=== PATIENT | female | born 1950 | race Caucasian/White ===

== ENCOUNTER → 2016-10-31 | Outpatient (CLI) | payer MEDICARE ==
--- NOTE | 2016-10-31 13:35 | RADIOLOGY REPORT (SQ) ---
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 NUMBER OF VIEWS: Five views including obliques. TECHNIQUE: AP, lateral, obliques and odontoid radiographic images acquired of the cervical spine. LIMITATIONS: None. FINDINGS: MINERALIZATION: Normal. SEGMENTATION: Normal. ALIGNMENT: Straightening of the cervical curvature. VERTEBRAE: Maintained height. No fracture or worrisome bone lesion. DISCS: Multilevel disc space narrowing with osteophytes. POSTERIOR ELEMENTS: Pedicles and facets are intact. No posterior arch defects. Facet arthropathy is present. FORAMINA: Narrowed at the levels of maximal disc and facet disease. HARDWARE: None in the spine. PARASPINAL SOFT TISSUES: Normal. OTHER: No other significant finding. IMPRESSION: MULTILEVEL CHRONIC DEGENERATIVE CHANGES. NO APPARENT ACUTE FINDINGS. TECHNICAL DOCUMENTATION: JOB ID: [id number] [employer]- All Rights Reserved
--- NOTE | 2016-10-31 13:36 | RADIOLOGY REPORT (SQ) ---
EXAM DESCRIPTION: LUMBAR SPINE COMPLETE COMPLETED DATE/TIME: 10/31/2016 1:24 pm REASON FOR STUDY: SPONDYLOSIS W/O MYELOPATHY OR RADICULOPATHY, LUMBAR REGION M54.2 CERVICALGIA M47. 816 SPONDYLOSIS W/O MYELOPATHY OR RADICULOPATHY, LUMBAR COMPARISON: 04/06/2014. NUMBER OF VIEWS: Five views including obliques. TECHNIQUE: AP, lateral, oblique, and sacral radiographic images acquired of the lumbar spine. LIMITATIONS: None. FINDINGS: MINERALIZATION: Normal. SEGMENTATION: Normal. No transitional anatomy. ALIGNMENT: Scoliosis, convex to the right. VERTEBRAE: Old compression deformity of T12. Lumbar vertebrae are intact. DISCS: Multilevel disc space narrowing with osteophytes. POSTERIOR ELEMENTS: Pedicles and facets are intact. No pars defect or posterior arch defects. Facet arthropathy is present. HARDWARE: None in the spine. PARASPINAL SOFT TISSUES: Normal. PELVIS: Intact as visualized. No fractures or worrisome bone lesions. SI joints intact. OTHER: No other significant finding. IMPRESSION: MULTILEVEL CHRONIC DEGENERATIVE CHANGES. OLD COMPRESSION DEFORMITY OF THE T12 VERTEBRA. NO APPARENT ACUTE FINDINGS. TECHNICAL DOCUMENTATION: JOB ID: [id number] [employer]- All Rights Reserved
== END ==
LOC: OD 12:37
PROVIDERS: ATTEND Family Medicine
DX: M54.2 Cervicalgia (principal); M47.816 Spondylosis without myelopathy or radiculopathy, lumbar region
CPT/HCPCS: 72050; 72110

== ENCOUNTER 2017-02-20 17:13 | Emergency (ER) | payer MEDICARE ==
--- NOTE | 2017-02-20 18:01 | ER Document Report ---
ED Medical Screen (RME) - General Chief Complaint: Weakness Stated Complaint: WEAKNESS Time Seen by Provider: 02/20/17 17:58 Mode of Arrival: Wheelchair Information source: Patient TRAVEL OUTSIDE OF THE [place] IN LAST 30 DAYS: No - HPI Patient complains to provider of: weakness, trembling Onset: Other - pt with c/o weakness for the past few days with occasional arm trembling. - Related Data Allergies/Adverse Reactions: codeine Allergy (Verified 02/20/17 17:19) Past Medical History - Social History Frequency of alcohol use: None Drug Abuse: None Neurological Medical History: Reports: Hx Cerebrovascular Accident - 2 years ago Renal/ Medical History: Denies: Hx Peritoneal Dialysis Past Surgical History: Reports: Hx Cardiac Surgery - pacemaker, Hx Cholecystectomy - Immunizations Hx Diphtheria, Pertussis, Tetanus Vaccination: No Physical Exam - Vital signs Vitals: Temp Pulse Resp BP Pulse Ox 97.3 F 84 18 118/70 92 02/20/17 17:19 02/20/17 17:19 02/20/17 17:19 02/20/17 17:19 02/20/17 17:19 Course - Vital Signs Vital signs: Temp Pulse Resp BP Pulse Ox 97.3 F 84 18 118/70 92 02/20/17 17:19 02/20/17 17:19 02/20/17 17:19 02/20/17 17:19 02/20/17 17:19
[2017-02-20 18:53] LABS: APPEARANCE,URINE SLIGHTLY-CLOUDY; BILIRUBIN,URINE NEGATIVE (NEGATIVE); GLUCOSE, URINE NEGATIVE (NEGATIVE); KETONES,URINE TRACE mg/dL (NEGATIVE); LEUKOCYTE ESTERASE,URINE NEGATIVE (NEGATIVE); NITRITE,URINE POSITIVE (NEGATIVE); PROTEIN,URINE NEGATIVE (NEGATIVE); URINE SPECIFIC GRAVITY 1.035; UROBILINOGEN,URINE NEGATIVE mg/dL (<2.0)
[2017-02-20 18:54] LABS: ABSOLUTE BASOPHILS # (AUTO) 0.1 10^3/uL (0.0-0.2); ABSOLUTE LYMPHOCYTES (AUTO) 1.7 10^3/uL (0.5-4.7); ABSOLUTE MONOCYTES (AUTO) 0.7 10^3/uL (0.1-1.4); ABSOLUTE NEUT (AUTO) 5.1 10^3/uL (1.7-8.2); BASOPHILS % (AUTO) 0.7 % (0-2); EOSINOPHILS % (AUTO) 0.2 % (0-6); HEMATOCRIT 44.3 % (36.0-47.0); HGB HCT DIFFERENCE 0.7; LYMPHOCYTES % (AUTO) 22.4 % (13-45); MEAN CORPUSCULAR HEMOGLOBIN 32.7 pg (27.0-33.4); MEAN CORPUSCULAR HGB CONC 33.9 g/dL (32.0-36.0); MEAN CORPUSCULAR VOLUME 96 fl (80-97); SEGMENTED NEUTROPHILS % (AUTO) 67.7 % (42-78); WHITE BLOOD COUNT 7.6 10^3/uL (4.0-10.5)
--- NOTE | 2017-02-20 18:59 | RADIOLOGY REPORT (SQ) ---
EXAM DESCRIPTION: CHEST PA/LAT COMPLETED DATE/TIME: 02/20/2017 6:52 pm REASON FOR STUDY: weakness COMPARISON: 03/10/2016 EXAM PARAMETERS: NUMBER OF VIEWS: two views TECHNIQUE: Digital Frontal and Lateral radiographic views of the chest acquired. RADIATION DOSE: NA LIMITATIONS: none FINDINGS: LUNGS AND PLEURA: No opacities, masses or pneumothorax. No pleural effusion. MEDIASTINUM AND HILAR STRUCTURES: No masses or contour abnormalities. HEART AND VASCULAR STRUCTURES: Heart normal size. No evidence for failure. BONES: No acute findings. HARDWARE: Battery pack and leads remain in place. OTHER: No other significant finding. IMPRESSION: NO SIGNIFICANT RADIOGRAPHIC FINDING IN THE CHEST. TECHNICAL DOCUMENTATION: JOB ID: [id number] [employer]- All Rights Reserved
[2017-02-20 19:17] LABS: ALANINE AMINOTRANSFERASE 18 U/L (9-52); ALBUMIN 3.6 g/dL (3.5-5.0); ALKALINE PHOSPHATASE 60 U/L (38-126); ANION GAP 10 (5-19); ASPARTATE AMINO TRANSFERASE 18 U/L (14-36); BILIRUBIN,DIRECT 0.3 mg/dL (0.0-0.4); BILIRUBIN,TOTAL 0.3 mg/dL (0.2-1.3); BLOOD UREA NITROGEN 27 mg/dL (7-20); CALCIUM 8.9 mg/dL (8.4-10.2); CARBON DIOXIDE 28 mmol/L (22-30); CHLORIDE 106 mmol/L (98-107); CREATINE KINASE 27 U/L (30-135); CREATININE RESULT 0.78 mg/dL (0.52-1.25); GLUCOSE 84 mg/dL (75-110); POTASSIUM 4.6 mmol/L (3.6-5.0); SODIUM 143.8 mmol/L (137-145); TOTAL PROTEIN 5.7 g/dL (6.3-8.2)
[2017-02-20 19:28] LABS: CREATINE KINASE MB 0.52 ng/mL (<4.55); TROPONIN I < 0.012 ng/mL
[2017-02-20] MEDS ORDERED: NITROFURANTOIN MONOHYD/M-CRYST 100 MG CAPSULE PO ONE (20:49)
--- NOTE | 2017-02-20 20:49 | ER Document Report ---
ED Dizziness/Weakness - General Chief Complaint: Weakness Stated Complaint: WEAKNESS Time Seen by Provider: 02/20/17 17:58 Mode of Arrival: Wheelchair Information source: Patient Notes: Patient is a 66-year-old female who presents to the ER today for generalized weakness 3 days with a feeling of jitteriness in both of her arms and legs. She denies any fevers or chills, cough, runny nose, abdominal pain, low back pain, dysuria. She admits to intermittent mild headache that she usually has that she has been taking Goody's powders for. She admits to blurred vision that has been going on since she had cataract surgery, not recent. She denies any nausea or vomiting or other symptoms. TRAVEL OUTSIDE OF THE [place] IN LAST 30 DAYS: No - Related Data Allergies/Adverse Reactions: codeine Allergy (Verified 02/20/17 17:19) Past Medical History - General Information source: Patient - Social History Smoking Status: Current Every Day Smoker Frequency of alcohol use: None Drug Abuse: None Family History: Reviewed & Not Pertinent Neurological Medical History: Reports: Hx Cerebrovascular Accident - 2 years ago Renal/ Medical History: Denies: Hx Peritoneal Dialysis Past Surgical History: Reports: Hx Cardiac Surgery - pacemaker, Hx Cholecystectomy - Immunizations Hx Diphtheria, Pertussis, Tetanus Vaccination: No Review of Systems - Review of Systems Constitutional: See HPI EENT: No symptoms reported Cardiovascular: No symptoms reported Respiratory: No symptoms reported Gastrointestinal: No symptoms reported Genitourinary: No symptoms reported Female Genitourinary: No symptoms reported Musculoskeletal: No symptoms reported Skin: No symptoms reported Hematologic/Lymphatic: No symptoms reported Neurological/Psychological: No symptoms reported Physical Exam - Vital signs Vitals: Temp Pulse Resp BP Pulse Ox 97.3 F 84 18 118/70 92 02/20/17 17:19 02/20/17 17:19 02/20/17 17:19 02/20/17 17:19 02/20/17 17:19 - Notes Notes: PHYSICAL EXAMINATION: GENERAL: Well-appearing and in no acute distress. HEAD: Atraumatic, normocephalic. EYES: Pupils equal round and reactive to light, extraocular movements intact, sclera anicteric, conjunctiva are normal. NECK: Normal range of motion, supple without lymphadenopathy LUNGS: CTAB and equal. No wheezes rales or rhonchi. HEART: Regular rate and rhythm without murmurs ABDOMEN: Soft, mild suprapubic and left lower quadrant tenderness. No guarding, no rebound BACK: no vertebral tenderness, normal ROM GI/: no CVA tenderness EXTREMITIES: Normal range of motion, no pitting edema. No cyanosis. NEUROLOGICAL: Cranial nerves grossly intact. Normal sensory/motor exams. Good and equal strength bilaterally, Kernig and Brudzinski's signs negative, Romberg' s test normal, normal heel to leslie testing PSYCH: Normal mood, normal affect. SKIN: Warm, Dry, normal turgor, no rashes or lesions noted Course - Re-evaluation Re-evalutation: 02/20/17 20:47 Patient has evidence of UTI on urinalysis positive for nitrites. Urine culture is pending. Will treat patient for UTI at this time. Neurological exam is normal today. 02/20/17 20:48 - Vital Signs Vital signs: Temp Pulse Resp BP Pulse Ox 97.3 F 84 18 118/70 92 02/20/17 17:19 02/20/17 17:19 02/20/17 17:19 02/20/17 17:19 02/20/17 17:19 - Laboratory Result Diagrams: 02/20/17 18:36 02/20/17 18:36 Laboratory results interpreted by me: 02/20/17 02/20/17 02/20/17 18:19 18:36 18:36 RDW 15.0 H BUN 27 H Creatine Kinase 27 L Total Protein 5.7 L Urine Ketones TRACE H Urine Nitrite POSITIVE H Urine Ascorbic Acid 20 H Discharge - Discharge Clinical Impression: UTI (urinary tract infection) Qualifiers: Urinary tract infection type: site unspecified Hematuria presence: without hematuria Qualified Code(s): N39.0 - Urinary tract infection, site not specified Condition: Stable Disposition: HOME, SELF-CARE Additional Instructions: Drink plenty fluids. Return immediately for any new or worsening symptoms. Follow up with primary care provider, call tomorrow to make followup appointment. Prescriptions: Nitrofurantoin/Nitrofuran Mac [Macrobid 100 mg Capsule] 1 tab PO BID #20 capsule Referrals: NEISHA BANDA MD [Primary Care Provider] - Follow up as needed
[2017-02-20 21:06] VITALS: BP 140/65
--- NOTE | 2017-02-20 22:51 | EKG REPORT ---
SEVERITY:- NORMAL ECG - SINUS RHYTHM : Confirmed by: Milo Marx 20-Feb-2017 22:49:50
== END 2017-02-20 21:05 | disposition home or self-care (01) ==
LOC: ER 17:13
DX: N39.0 Urinary tract infection, site not specified (principal); R53.1 Weakness; R51 Headache; F17.200 Nicotine dependence, unspecified, uncomplicated
CPT/HCPCS: 36415; 71020; 80053; 81001; 82550; 82553; 84484; 85025; 87086; 87088; 87186; 93005; 93010; 99285

== ENCOUNTER 2017-02-21 21:34 | Inpatient (IN) | payer MEDICARE, MEDICAID ==
[2017-02-22 02:28] LABS: VENOUS BLOOD HCO3 30.6 mmol/L (20-32); VENOUS BLOOD PCO2 48.5 mmHg (35-63); VENOUS BLOOD PH 7.42 (7.30-7.42)
[2017-02-22 02:48] LABS: ALANINE AMINOTRANSFERASE 23 U/L (9-52); ALBUMIN 3.8 g/dL (3.5-5.0); ALKALINE PHOSPHATASE 69 U/L (38-126); ANION GAP 12 (5-19); ASPARTATE AMINO TRANSFERASE 20 U/L (14-36); BILIRUBIN,DIRECT 0.3 mg/dL (0.0-0.4); BILIRUBIN,TOTAL 0.3 mg/dL (0.2-1.3); BLOOD UREA NITROGEN 22 mg/dL (7-20); CARBON DIOXIDE 29 mmol/L (22-30); CHLORIDE 102 mmol/L (98-107); CREATINE KINASE 28 U/L (30-135); CREATININE RESULT 0.85 mg/dL (0.52-1.25); GLUCOSE 93 mg/dL (75-110); POTASSIUM 3.5 mmol/L (3.6-5.0); SODIUM 142.6 mmol/L (137-145); TOTAL PROTEIN 6.2 g/dL (6.3-8.2)
--- NOTE | 2017-02-22 02:57 | RADIOLOGY REPORT (SQ) ---
EXAM DESCRIPTION: CT HEAD WITHOUT COMPLETED DATE/TIME: 02/22/2017 2:37 am REASON FOR STUDY: altered mental status COMPARISON: 03/10/2016. TECHNIQUE: Axial images acquired through the brain without intravenous contrast. Images reviewed wi th bone, brain and subdural windows. Images stored on PACS. All CT scanners at this facility use dose modulation, iterative reconstruction, and/or weight based d osing when appropriate to reduce radiation dose to as low as reasonably achievable (ALARA). [facility]: Dose Right [facility]: CareDose [facility]: Dose Right [facility]: Teradose 4D [facility]: Smart [place]5 RADIATION DOSE: Up-to-date CT equipment and radiation dose reduction techniques were employed. CTDIv ol: 55.3 mGy. DLP: 996 mGy-cm. mGy. LIMITATIONS: None. FINDINGS: VENTRICLES: Normal size and contour. CEREBRUM: No masses. No hemorrhage. No midline shift. No evidence for acute infarction. Normal gra y/white matter differentiation. No areas of low density in the white matter. CEREBELLUM: No masses. No hemorrhage. No alteration of density. No evidence for acute infarction. EXTRAAXIAL SPACES: No fluid collections. No masses. Atherosclerosis. ORBITS AND GLOBE: No intra- or extraconal masses. Normal contour of globe without masses. CALVARIUM: No fracture. PARANASAL SINUSES: No fluid or mucosal thickening. SOFT TISSUES: No mass or hematoma. OTHER: No other significant finding. IMPRESSION: No acute findings. COMMENT: Quality ID # [id number]: Final reports with documentation of one or more dose reduction techniques (e.g., Automated exposure control, adjustment of the mA and/or kV according to patient size, use of iterative reconstruction technique) TECHNICAL DOCUMENTATION: JOB ID: [id number] [employer]- All Rights Reserved
--- NOTE | 2017-02-22 03:00 | RADIOLOGY REPORT (SQ) ---
EXAM DESCRIPTION: CHEST SINGLE VIEW COMPLETED DATE/TIME: 02/22/2017 2:41 am REASON FOR STUDY: altered mental status COMPARISON: 02/20/2017. EXAM PARAMETERS: NUMBER OF VIEWS: One view. TECHNIQUE: Single frontal radiographic view of the chest acquired. RADIATION DOSE: NA LIMITATIONS: None. FINDINGS: LUNGS AND PLEURA: No opacities, masses or pneumothorax. No pleural effusion. Prominent in terstitium. MEDIASTINUM AND HILAR STRUCTURES: No masses. Contour normal. HEART AND VASCULAR STRUCTURES: Heart normal in size. Atherosclerosis. BONES: No acute findings. HARDWARE: Left cardiac stimulation device and leads. Right upper abdominal clips. OTHER: No other significant finding. IMPRESSION: No acute cardiopulmonary findings. TECHNICAL DOCUMENTATION: JOB ID: [id number]
[2017-02-22 03:01] LABS: CREATINE KINASE MB < 0.22 ng/mL (<4.55); TROPONIN I < 0.012 ng/mL
[2017-02-22 03:08] LABS: HEMATOCRIT 43.8 % (36.0-47.0); HEMOGLOBIN 14.9 g/dL (12.0-15.5); HGB HCT DIFFERENCE 0.9; MEAN CORPUSCULAR HEMOGLOBIN 32.8 pg (27.0-33.4); MEAN CORPUSCULAR HGB CONC 34.1 g/dL (32.0-36.0); MEAN CORPUSCULAR VOLUME 96 fl (80-97); RED BLOOD COUNT 4.56 10^6/uL (3.72-5.28); RED CELL DISTRIBUTION WIDTH 14.6 % (11.5-14.0); WHITE BLOOD COUNT 10.7 10^3/uL (4.0-10.5)
[2017-02-22 03:10] LABS: BAND NEUTROPHILS % (MANUAL) 6 % (3-5); BASOPHILS % (MANUAL) 0 % (0-2); EOSINOPHILS % (MANUAL) 0 % (0-6); LYMPHOCYTES % (MANUAL) 3 % (13-45); TOTAL CELLS COUNTED 100
[2017-02-22 03:11] LABS: ANISOCYTOSIS SLIGHT; OVALOCYTES SLIGHT; POIKILOCYTOSIS SLIGHT; POLYCHROMASIA SLIGHT; TOXIC GRANULATION SLIGHT
[2017-02-22 03:52] LABS: APPEARANCE,URINE SLIGHTLY-CLOUDY; BILIRUBIN,URINE NEGATIVE (NEGATIVE); GLUCOSE, URINE NEGATIVE (NEGATIVE); KETONES,URINE 20 mg/dL (NEGATIVE); LEUKOCYTE ESTERASE,URINE NEGATIVE (NEGATIVE); NITRITE,URINE NEGATIVE (NEGATIVE); PROTEIN,URINE NEGATIVE (NEGATIVE); URINE SPECIFIC GRAVITY 1.029
[2017-02-22 04:09] LABS: URINE BARBITURATES SCREEN NEGATIVE; URINE METHADONE SCREEN NEGATIVE; URINE OPIATES LOW NEGATIVE; URINE PHENCYCLIDINE SCREEN NEGATIVE
[2017-02-22] MEDS ORDERED: LIDOCAINE 1% INJ-PF (10 MG/ML) 30 ML SDV INJ ONE (04:49)
[2017-02-22] MEDS ORDERED: NORMAL SALINE 1000 ML 1,000 ML IV ONE (04:57)
[2017-02-22] MEDS ORDERED: ACYCLOVIR SODIUM INJ/PF 500 MG/10 ML SDV IV ONE (05:25)
--- NOTE | 2017-02-22 05:26 | ER Document Report ---
ED General - General Chief Complaint: Vomiting Stated Complaint: VOMITING Time Seen by Provider: 02/22/17 01:42 Notes: Patient is a 66-year-old female presents with complaint of weakness dizziness. Family says that she has been intermittently confused and altered. She was seen here yesterday and diagnosed possible UTI. At that time her urinalysis showed nitrites but no leukocyte esterase. She started antibiotic and is only gotten worse during her and family. She has not had fevers at home. She says she so weak that she can barely get out of bed at this point. During exam and talked with the patient she is somnolent and difficult to keep awake. Because of this history from the patient is limited. I am able to get good history from family members who confirm that she is just been very weak and unwell appearing this has been gradually worsening for a week now. She denies any recent medication changes. She does admit she has had some headache. She says that she has chronic neck and back pain which is unchanged. She admits to some vomiting but no diarrhea. No abdominal pain associated with the vomiting. TRAVEL OUTSIDE OF THE [place] IN LAST 30 DAYS: No - Related Data Allergies/Adverse Reactions: codeine Allergy (Verified 02/20/17 17:19) Home Medications: Current Home Medications Atorvastatin Calcium [Lipitor 40 mg Tablet] 40 mg PO QHS 02/22/17 [History] Benzonatate 100 mg PO TIDP PRN 02/22/17 [History] Diltiazem HCl [Cardizem Cd 120 mg Capsule] 1 cap.sr PO DAILY 02/22/17 [History] Fluorometholone [Fluorometholone] 1 drop ASDIR PRN 02/22/17 [History] Furosemide [Lasix 20 mg Tablet] 20 mg PO QAM 02/22/17 [History] Nitrofurantoin Macrocrystal [Macrodantin] 100 mg PO BID 02/22/17 [History] Past Medical History - Social History Smoking Status: Current Every Day Smoker Frequency of alcohol use: None Drug Abuse: None Family History: Reviewed & Not Pertinent Patient has suicidal ideation: No Patient has homicidal ideation: No Neurological Medical History: Reports: Hx Cerebrovascular Accident - 2 years ago Renal/ Medical History: Denies: Hx Peritoneal Dialysis Past Surgical History: Reports: Hx Cardiac Surgery - pacemaker, Hx Cholecystectomy - Immunizations Hx Diphtheria, Pertussis, Tetanus Vaccination: No Review of Systems - Review of Systems Notes: My Normal Review Basic REVIEW OF SYSTEMS: CONSTITUTIONAL : Denies fever, chills, or sweats. . EENT: Denies eye, ear, throat, or mouth pain or symptoms. Denies nasal or sinus congestion. CARDIOVASCULAR: Denies chest pain. RESPIRATORY: Denies cough, cold, or chest congestion. Denies shortness of breath, difficulty breathing, or wheezing. GASTROINTESTINAL: Denies abdominal pain. Denies nausea, vomiting, or diarrhea. Denies constipation. Last BM: GENITOURINARY: Denies difficulty urinating, painful urination, burning, frequency, or blood in urine. MUSCULOSKELETAL: Denies neck or back pain or joint pain or swelling. SKIN: Denies rash or skin lesions.. NEUROLOGICAL: Some intermittent altered mental status.. Intermittent headache. Denies weakness or paralysis or loss of use of either side. Denies problems with gait or speech. Denies sensory or motor loss. ALL OTHER SYSTEMS REVIEWED AND NEGATIVE. Physical Exam - Vital signs Vitals: Temp Pulse Resp BP Pulse Ox 99.0 F 101 H 16 114/69 90 L 02/21/17 22:03 02/21/17 22:03 02/21/17 22:03 02/21/17 22:03 02/21/17 22:03 - Notes Notes: General Appearance: Well nourished, patient is somnolent but is able to awaken and answer my questions., cooperative, no acute distress, no obvious discomfort. Vitals: reviewed, See vital signs table. Head: no swelling or tenderness to the head Eyes: PERRL, EOMI, Conjuctiva clear Mouth: No decreasd moisture Throat: No tonsillar inflammation, No airway obstruction, No lymphadenopathy Neck: Supple, no neck tenderness Lungs: No wheezing, No rales, No rhonci, No accessory muscle use, good air exchange bilaterally. Heart: Normal rate, Regular rythm, No murmur, no rub Abdomen: Normal BS, soft, No rigidity, No abdominal tenderness, No guarding, no rebound, no abdominal masses, no organomegaly Extremities: strength 5/5 in all extremities, good pulses in all extremities, no swelling or tenderness in the extremities, no edema. Skin: warm, dry, appropriate color, no rash Neuro: speech clear, oriented x 3, normal affect, responds appropriately to questions. Cranial nerves II through XII are intact. Distal sensation intact. Patient is globally weak, but is able to move all 4 extremities equally. Course - Re-evaluation Re-evalutation: 02/22/17 06:53 At this time I do not know the exact cause of why the patient is so somnolent and is having some intermittent altered mental status. I do not see signs of infection on exam. Her CBC does have 6 bands which is just slightly elevated. I did discuss the case with Dr. Briseno, hospitalist, who requested attempt to perform a lumbar puncture. I did attempt a lumbar puncture but however did not obtain any CSF fluid. Will place her on acyclovir in case there is underlying encephalitis until they can obtain a lumbar puncture via IR. Patient to be admitted. Dictation of this chart was performed using voice recognition software; therefore, there may be some unintended grammatical errors. - Vital Signs Vital signs: Temp Pulse Resp BP Pulse Ox 98.9 F 101 H 16 105/55 L 93 02/22/17 05:55 02/21/17 22:03 02/22/17 05:01 02/22/17 05:01 02/22/17 05:01 - Laboratory Result Diagrams: 02/22/17 02:15 02/22/17 02:15 Laboratory results interpreted by me: 02/22/17 02/22/17 02/22/17 02:15 02:15 02:15 WBC 10.7 H RDW 14.6 H Plt Count 118 L Seg Neuts % (Manual) 86 H Band Neutrophils % 6 H Lymphocytes % (Manual) 3 L Abs Neuts (Manual) 9.8 H Abs Lymphs (Manual) 0.3 L Potassium 3.5 L BUN 22 H Ammonia < 8.7 L Creatine Kinase 28 L Total Protein 6.2 L TSH Urine Ketones Urine Urobilinogen 02/22/17 02/22/17 02:15 03:40 WBC RDW Plt Count Seg Neuts % (Manual) Band Neutrophils % Lymphocytes % (Manual) Abs Neuts (Manual) Abs Lymphs (Manual) Potassium BUN Ammonia Creatine Kinase Total Protein TSH 0.28 L Urine Ketones 20 H Urine Urobilinogen 2.0 H Discharge - Discharge Clinical Impression: Weakness Altered mental status Qualifiers: Altered mental status type: somnolence Qualified Code(s): R40.0 - Somnolence Condition: Stable Disposition: ADMITTED OBSERVATION Admitting Provider: Hospitalist Unit Admitted: Telemetry
[2017-02-22] MEDS ORDERED: NICOTINE 21 MG/24 HR PATCH.TD24 TD ONE (05:53)
[2017-02-22] MEDS ORDERED: IPRATROPIUM/ALBUTEROL 0.5-2.5 MG/3 ML AMPUL NEB PRN (06:20)
[2017-02-22 06:28] LABS: ADD ON TESTING BLD IN LAB ACKNOWLEDGE
[2017-02-22] MEDS ORDERED: NORMAL SALINE 1000 ML 1,000 ML IV SCH (06:30)
--- NOTE | 2017-02-22 07:26 | PDOC H&P ---
History of Present Illness Admission Date/PCP: 02/22/17 06:20 NEISHA BANDA MD Patient complains of: Generalized weakness and tremor History of Present Illness: EDMOND KIMBALL is a 66 year old female with a past medical history of morbid obesity, tobacco, hypertension, CVA, permanent pacemaker and chronic headaches. Patient been her usual state of health until approximately 7 days ago prompting her to seek evaluation emergency room 5 days ago she was diagnosed with a urinary tract infection placed on Macrodantin. She has had no urinary complaints but no improvement former symptoms including tremor, palpitations and throbbing sensation of her hands and face. Patient has a unremarkable workup and an attempted LP is unsuccessful. Patient admits to chronic daily headache for which she takes 6-8 BC powder packages per day for years. (Which equates to over 5 g of aspirin per day) she started on an IV fluid challenge, salicylate and acetaminophen levels on order. She denies difficulty maintaining consciousness, tinnitus or exceptional headache or protecting her airway. Past Medical History Neurological Medical History: Reports: Seizures, Other - Daily headaches Endocrine Medical History: Reports: Obesity Psychiatric Medical History: Denies: Depression Past Surgical History Past Surgical History: Reports: Cholecystectomy Social History Information Source: Patient Lives with: Family Smoking Status: Current Every Day Smoker Frequency of Alcohol Use: None Drugs: None - Advance Directive Resuscitation Status: Full Code Family History Family History: COPD Parental Family History Reviewed: Yes Children Family History Reviewed: Yes Sibling(s) Family History Reviewed.: Yes Medication/Allergy Home Medications: Atorvastatin Calcium [Lipitor 40 mg Tablet] 40 mg PO QHS 02/22/17 Benzonatate 100 mg PO TIDP PRN 02/22/17 Diltiazem HCl [Cardizem Cd 120 mg Capsule] 1 cap.sr PO DAILY 02/22/17 Fluorometholone [Fluorometholone] 1 drop ASDIR PRN 02/22/17 Furosemide [Lasix 20 mg Tablet] 20 mg PO QAM 02/22/17 Nitrofurantoin Macrocrystal [Macrodantin] 100 mg PO BID 02/22/17 Allergies/Adverse Reactions: codeine Allergy (Verified 02/20/17 17:19) Review of Systems Constitutional: PRESENT: as per HPI, fatigue, fever(s), weakness Eyes: ABSENT: visual disturbances Ears: ABSENT: hearing changes Cardiovascular: PRESENT: palpitations. ABSENT: chest pain, dyspnea on exertion , edema, orthropnea Respiratory: ABSENT: cough, hemoptysis Gastrointestinal: ABSENT: abdominal pain, constipation, diarrhea, hematemesis, hematochezia, nausea, vomiting Genitourinary: ABSENT: dysuria, hematuria Musculoskeletal: PRESENT: muscle weakness. ABSENT: joint swelling Integumentary: ABSENT: rash, wounds Neurological: PRESENT: abnormal movements, confusion, paresthesias, tremor(s), weakness Physical Exam Vital Signs: Temp Pulse Resp BP Pulse Ox 98.9 F 101 H 16 105/55 L 93 02/22/17 05:55 02/21/17 22:03 02/22/17 05:01 02/22/17 05:01 02/22/17 05:01 General appearance: PRESENT: cooperative, mild distress Head exam: PRESENT: atraumatic, normocephalic Eye exam: PRESENT: conjunctiva pink, EOMI, PERRLA. ABSENT: scleral icterus Ear exam: PRESENT: normal external ear exam Mouth exam: PRESENT: moist, tongue midline Neck exam: ABSENT: carotid bruit, JVD, lymphadenopathy, thyromegaly Respiratory exam: PRESENT: clear to auscultation cora. ABSENT: rales, rhonchi, wheezes Cardiovascular exam: PRESENT: RRR. ABSENT: diastolic murmur, rubs, systolic murmur Pulses: PRESENT: normal dorsalis pedis pul Vascular exam: PRESENT: normal capillary refill GI/Abdominal exam: PRESENT: normal bowel sounds, soft. ABSENT: distended, guarding, mass, organolmegaly, rebound, tenderness Rectal exam: PRESENT: deferred Extremities exam: PRESENT: full ROM. ABSENT: calf tenderness, clubbing, pedal edema Neurological exam: PRESENT: alert, awake, oriented to person, oriented to place , oriented to time, oriented to situation, CN II-XII grossly intact. ABSENT: motor sensory deficit Psychiatric exam: PRESENT: appropriate affect, normal mood. ABSENT: homicidal ideation, suicidal ideation Skin exam: PRESENT: dry, intact, warm. ABSENT: cyanosis, rash Results Impressions: Chest X-Ray 02/22/17 01:50 IMPRESSION: No acute cardiopulmonary findings. Head CT 02/22/17 01:50 IMPRESSION: No acute findings. 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 Salicylate level pending, doubt need for dialysis given no suggestion of cerebral edema or respiratory distress. IV fluid challenge and supportive measures, follow-up salicylate level in 6 hours to verify reduction. (2) Altered mental status Qualifiers: Altered mental status type: somnolence Qualified Code(s): R40.0 - Somnolence Is this a current diagnosis for this admission?: Yes Plan: Improving to baseline with IV fluid challenge and supportive measure (3) Weakness Is this a current diagnosis for this admission?: Yes Plan: Secondary #1 supportive care. - Time Time Spent: 50 to 70 Minutes - Inpatient Certification Medical Necessity: Need Close Monitoring Due to Risk of Patient Decompensation
[2017-02-22] MEDS ORDERED: DEXTROSE 5% IV PRN ×3 (09:39)
[2017-02-22] MEDS ORDERED: SODIUM BICARBONATE IV PRN ×3 (09:39)
[2017-02-22] MEDS ORDERED: [UNRECOGNIZED DRUG - OTHER] IV PRN ×3 (09:39)
[2017-02-22] MEDS ORDERED: WATER IV PRN ×3 (09:39)
--- NOTE | 2017-02-22 10:01 | PDOC PROGRESS REPORT ---
Subjective Progress Note for:: 02/22/17 Subjective:: Feeling sleepy. Physical Exam Vital Signs: Temp Pulse Resp BP Pulse Ox 98.9 F 101 H 16 105/55 L 93 02/22/17 05:55 02/21/17 22:03 02/22/17 05:01 02/22/17 05:01 02/22/17 05:01 General appearance: PRESENT: no acute distress Head exam: PRESENT: atraumatic, normocephalic Eye exam: PRESENT: conjunctiva pink, EOMI, PERRLA. ABSENT: scleral icterus Respiratory exam: PRESENT: clear to auscultation cora. ABSENT: rales, rhonchi, wheezes Cardiovascular exam: PRESENT: RRR. ABSENT: diastolic murmur, rubs, systolic murmur GI/Abdominal exam: PRESENT: normal bowel sounds, soft. ABSENT: distended, guarding, mass, organolmegaly, rebound, tenderness Neurological exam: PRESENT: alert, awake, oriented to person, oriented to place , oriented to time, oriented to situation, CN II-XII grossly intact. ABSENT: motor sensory deficit Psychiatric exam: PRESENT: appropriate affect, normal mood. ABSENT: homicidal ideation, suicidal ideation Skin exam: PRESENT: dry, intact, warm. ABSENT: cyanosis, rash Results Laboratory Results: Labs- All tests 24 hr 02/22/17 02/22/17 02/22/17 02:15 02:15 02:15 WBC 10.7 H RBC 4.56 Hgb 14.9 Hct 43.8 MCV 96 MCH 32.8 MCHC 34.1 RDW 14.6 H Plt Count 118 L Total Counted 100 Seg Neutrophils % Not Reportable Seg Neuts % (Manual) 86 H Band Neutrophils % 6 H Lymphocytes % Not Reportable Lymphocytes % (Manual) 3 L Monocytes % Not Reportable Monocytes % (Manual) 5 Eosinophils % Not Reportable Eosinophils % (Manual) 0 Basophils % Not Reportable Basophils % (Manual) 0 Absolute Neutrophils Not Reportable Abs Neuts (Manual) 9.8 H Absolute Lymphocytes Not Reportable Abs Lymphs (Manual) 0.3 L Absolute Monocytes Not Reportable Abs Monocytes (Manual) 0.5 Absolute Eosinophils Not Reportable Absolute Eos (Manual) 0.0 Absolute Basophils Not Reportable Abs Basophils (Manual) 0.0 Toxic Granulation SLIGHT Platelet Comment DECREASED Polychromasia SLIGHT Poikilocytosis SLIGHT Anisocytosis SLIGHT Ovalocytes SLIGHT ESR VBG pH VBG pCO2 VBG HCO3 VBG Base Excess Sodium 142.6 Potassium 3.5 L Chloride 102 Carbon Dioxide 29 Anion Gap 12 BUN 22 H Creatinine 0.85 Est GFR ( Amer) > 60 Est GFR (Non-Af Amer) > 60 Glucose 93 Calcium 9.0 Total Bilirubin 0.3 Direct Bilirubin 0.3 Indirect Bilirubin Not Reportable Neonat Total Bilirubin Not Reportable AST 20 ALT 23 Alkaline Phosphatase 69 Ammonia < 8.7 L Creatine Kinase 28 L CK-MB (CK-2) Troponin I Total Protein 6.2 L Albumin 3.8 TSH Urine Color Urine Appearance Urine pH Ur Specific [place] Urine Protein Urine Glucose (UA) Urine Ketones Urine Blood Urine Nitrite Urine Bilirubin Urine Urobilinogen Ur Leukocyte Esterase Urine WBC (Auto) Urine RBC (Auto) Squamous Epi Cells Auto Urine Mucus (Auto) Urine Ascorbic Acid Salicylates Urine Opiates Screen Urine Methadone Screen Acetaminophen Ur Barbiturates Screen Ur Phencyclidine Scrn Ur Amphetamines Screen U Benzodiazepines Scrn Urine Cocaine Screen U Marijuana (THC) Screen 02/22/17 02/22/17 02/22/17 02:15 02:15 02:15 WBC RBC Hgb Hct MCV MCH MCHC RDW Plt Count Total Counted Seg Neutrophils % Seg Neuts % (Manual) Band Neutrophils % Lymphocytes % Lymphocytes % (Manual) Monocytes % Monocytes % (Manual) Eosinophils % Eosinophils % (Manual) Basophils % Basophils % (Manual) Absolute Neutrophils Abs Neuts (Manual) Absolute Lymphocytes Abs Lymphs (Manual) Absolute Monocytes Abs Monocytes (Manual) Absolute Eosinophils Absolute Eos (Manual) Absolute Basophils Abs Basophils (Manual) Toxic Granulation Platelet Comment Polychromasia Poikilocytosis Anisocytosis Ovalocytes ESR VBG pH 7.42 VBG pCO2 48.5 VBG HCO3 30.6 VBG Base Excess 5.0 Sodium Potassium Chloride Carbon Dioxide Anion Gap BUN Creatinine Est GFR ( Amer) Est GFR (Non-Af Amer) Glucose Calcium Total Bilirubin Direct Bilirubin Indirect Bilirubin Neonat Total Bilirubin AST ALT Alkaline Phosphatase Ammonia Creatine Kinase CK-MB (CK-2) < 0.22 Troponin I < 0.012 Total Protein Albumin TSH 0.28 L Urine Color Urine Appearance Urine pH Ur Specific [place] Urine Protein Urine Glucose (UA) Urine Ketones Urine Blood Urine Nitrite Urine Bilirubin Urine Urobilinogen Ur Leukocyte Esterase Urine WBC (Auto) Urine RBC (Auto) Squamous Epi Cells Auto Urine Mucus (Auto) Urine Ascorbic Acid Salicylates Urine Opiates Screen Urine Methadone Screen Acetaminophen Ur Barbiturates Screen Ur Phencyclidine Scrn Ur Amphetamines Screen U Benzodiazepines Scrn Urine Cocaine Screen U Marijuana (THC) Screen 02/22/17 02/22/17 02/22/17 02:15 02:15 03:40 WBC RBC Hgb Hct MCV MCH MCHC RDW Plt Count Total Counted Seg Neutrophils % Seg Neuts % (Manual) Band Neutrophils % Lymphocytes % Lymphocytes % (Manual) Monocytes % Monocytes % (Manual) Eosinophils % Eosinophils % (Manual) Basophils % Basophils % (Manual) Absolute Neutrophils Abs Neuts (Manual) Absolute Lymphocytes Abs Lymphs (Manual) Absolute Monocytes Abs Monocytes (Manual) Absolute Eosinophils Absolute Eos (Manual) Absolute Basophils Abs Basophils (Manual) Toxic Granulation Platelet Comment Polychromasia Poikilocytosis Anisocytosis Ovalocytes ESR 8 VBG pH VBG pCO2 VBG HCO3 VBG Base Excess Sodium Potassium Chloride Carbon Dioxide Anion Gap BUN Creatinine Est GFR ( Amer) Est GFR (Non-Af Amer) Glucose Calcium Total Bilirubin Direct Bilirubin Indirect Bilirubin Neonat Total Bilirubin AST ALT Alkaline Phosphatase Ammonia Creatine Kinase CK-MB (CK-2) Troponin I Total Protein Albumin TSH Urine Color YELLOW Urine Appearance SLIGHTLY-CLOUDY Urine pH 5.0 Ur Specific [place] 1.029 Urine Protein NEGATIVE Urine Glucose (UA) NEGATIVE Urine Ketones 20 H Urine Blood NEGATIVE Urine Nitrite NEGATIVE Urine Bilirubin NEGATIVE Urine Urobilinogen 2.0 H Ur Leukocyte Esterase NEGATIVE Urine WBC (Auto) 2 Urine RBC (Auto) 4 Squamous Epi Cells Auto 5 Urine Mucus (Auto) OCC Urine Ascorbic Acid NEGATIVE Salicylates 26.0 H* Urine Opiates Screen Urine Methadone Screen Acetaminophen < 10 L Ur Barbiturates Screen Ur Phencyclidine Scrn Ur Amphetamines Screen U Benzodiazepines Scrn Urine Cocaine Screen U Marijuana (THC) Screen 02/22/17 03:40 WBC RBC Hgb Hct MCV MCH MCHC RDW Plt Count Total Counted Seg Neutrophils % Seg Neuts % (Manual) Band Neutrophils % Lymphocytes % Lymphocytes % (Manual) Monocytes % Monocytes % (Manual) Eosinophils % Eosinophils % (Manual) Basophils % Basophils % (Manual) Absolute Neutrophils Abs Neuts (Manual) Absolute Lymphocytes Abs Lymphs (Manual) Absolute Monocytes Abs Monocytes (Manual) Absolute Eosinophils Absolute Eos (Manual) Absolute Basophils Abs Basophils (Manual) Toxic Granulation Platelet Comment Polychromasia Poikilocytosis Anisocytosis Ovalocytes ESR VBG pH VBG pCO2 VBG HCO3 VBG Base Excess Sodium Potassium Chloride Carbon Dioxide Anion Gap BUN Creatinine Est GFR ( Amer) Est GFR (Non-Af Amer) Glucose Calcium Total Bilirubin Direct Bilirubin Indirect Bilirubin Neonat Total Bilirubin AST ALT Alkaline Phosphatase Ammonia Creatine Kinase CK-MB (CK-2) Troponin I Total Protein Albumin TSH Urine Color Urine Appearance Urine pH Ur Specific [place] Urine Protein Urine Glucose (UA) Urine Ketones Urine Blood Urine Nitrite Urine Bilirubin Urine Urobilinogen Ur Leukocyte Esterase Urine WBC (Auto) Urine RBC (Auto) Squamous Epi Cells Auto Urine Mucus (Auto) Urine Ascorbic Acid Salicylates Urine Opiates Screen NEGATIVE Urine Methadone Screen NEGATIVE Acetaminophen Ur Barbiturates Screen NEGATIVE Ur Phencyclidine Scrn NEGATIVE Ur Amphetamines Screen NEGATIVE U Benzodiazepines Scrn NEGATIVE Urine Cocaine Screen NEGATIVE U Marijuana (THC) Screen NEGATIVE Impressions: Chest X-Ray 02/22/17 01:50 IMPRESSION: No acute cardiopulmonary findings. Head CT 02/22/17 01:50 IMPRESSION: No acute findings. Assessment & Plan - Diagnosis (1) Salicylate poisoning Qualifiers: Encounter type: subsequent encounter Injury intent: accidental or unintentional Qualified Code(s): T39.091D - Poisoning by salicylates, accidental (unintentional), subsequent encounter Is this a current diagnosis for this admission?: Yes Plan: According to up-to-date, she needs to be treated with sodium bicarbonate and potassium despite not being acidotic or hypokalemic. I have started D5W with sodium bicarb. The rate will be based on her urine pH. For now, I started at 100 cc/h. potassium is added to the fluids, because the sodium bicarb will most likely lead to hypokalemia. A blood gas has also been ordered every 2 hours along with a salicylate level every 2 hours. The urine pH and potassium will be checked every hour. I have ordered labs up until 2 PM today. Hopefully, at that point, her salicylate level will trend downward, thus avoiding dialysis. (2) Hypokalemia Is this a current diagnosis for this admission?: Yes Plan: Supplemental potassium ordered. Check magnesium level. - Time Time Spent with patient: 25-34 minutes Medications reviewed and adjusted accordingly: Yes Anticipated discharge: Home - Inpatient Certification Based on my medical assessment, after consideration of the patient's comorbidities, presenting symptoms, or acuity I expect that the services needed warrant INPATIENT care.: Yes I certify that my determination is in accordance with my understanding of Medicare's requirements for reasonable and necessary INPATIENT services [42 CFR 412.3e].: Yes Medical Necessity: Need Close Monitoring Due to Risk of Patient Decompensation, Need For IV Fluids
[2017-02-22] MEDS ORDERED: DEXTROSE 5%-WATER 1000 ML 1,000 ML with SODIUM BICARBONATE 100 MEQ IV PRN ×4 (10:38→15:07)
[2017-02-22 11:00] LABS: APPEARANCE,URINE SLIGHTLY-CLOUDY; BILIRUBIN,URINE NEGATIVE (NEGATIVE); GLUCOSE, URINE NEGATIVE (NEGATIVE); KETONES,URINE TRACE mg/dL (NEGATIVE); LEUKOCYTE ESTERASE,URINE NEGATIVE (NEGATIVE); NITRITE,URINE NEGATIVE (NEGATIVE); PROTEIN,URINE NEGATIVE (NEGATIVE); URINE SPECIFIC GRAVITY 1.021; UROBILINOGEN,URINE NEGATIVE mg/dL (<2.0)
[2017-02-22 11:16] LABS: ANION GAP 7 (5-19); BLOOD UREA NITROGEN 22 mg/dL (7-20); CALCIUM 8.3 mg/dL (8.4-10.2); CARBON DIOXIDE 28 mmol/L (22-30); CHLORIDE 106 mmol/L (98-107); CREATININE RESULT 0.74 mg/dL (0.52-1.25); GLUCOSE 71 mg/dL (75-110); POTASSIUM 3.5 mmol/L (3.6-5.0); SODIUM 141.3 mmol/L (137-145)
[2017-02-22 11:59] LABS: ARTERIAL BLOOD BASE EXCESS 2.2 mmol/L; ARTERIAL BLOOD O2 SATURATION 88.9 % (94-98)
[2017-02-22] MEDS: POTASSIUM CHLORIDE 20 MEQ/50 ML RTU IV SCH ×2 (12:14→14:30)
[2017-02-22 12:34] LABS: ANION GAP 8 (5-19); BLOOD UREA NITROGEN 22 mg/dL (7-20); CALCIUM 7.9 mg/dL (8.4-10.2); CARBON DIOXIDE 28 mmol/L (22-30); CHLORIDE 106 mmol/L (98-107); CREATININE RESULT 0.67 mg/dL (0.52-1.25); GLUCOSE 79 mg/dL (75-110); POTASSIUM 3.2 mmol/L (3.6-5.0); SODIUM 141.5 mmol/L (137-145)
[2017-02-22] MEDS: DOCUSATE SODIUM 100 MG CAPSULE PO SCH ×2 (13:46→16:55)
[2017-02-22] MEDS: HEPARIN SOD (PORCINE) 5,000 UNIT/ML 1 ML SYRINGE SUBCUT SCH ×3 (14:35→21:12)
[2017-02-22] MEDS: POTASSIUM CHLORIDE 10 MEQ TABLET.SA PO SCH ×2 (16:48→21:16)
[2017-02-23 04:28] LABS: ANION GAP 5 (5-19); BLOOD UREA NITROGEN 17 mg/dL (7-20); CALCIUM 8.4 mg/dL (8.4-10.2); CARBON DIOXIDE 29 mmol/L (22-30); CHLORIDE 106 mmol/L (98-107); CREATININE RESULT 0.65 mg/dL (0.52-1.25); GLUCOSE 83 mg/dL (75-110); SODIUM 140.3 mmol/L (137-145)
[2017-02-23 04:38] LABS: POTASSIUM 4.5 mmol/L (3.6-5.0)
[2017-02-23] MEDS: HEPARIN SOD (PORCINE) 5,000 UNIT/ML 1 ML SYRINGE SUBCUT SCH ×3 (05:26→22:25)
[2017-02-23] MEDS: DOCUSATE SODIUM 100 MG CAPSULE PO SCH ×2 (09:53→19:06)
[2017-02-23] MEDS ORDERED: VANCOMYCIN HCL 0 MG in DEXTROSE 5%-WATER 250 ML IV NR (11:15)
--- NOTE | 2017-02-23 11:43 | DISCHARGE SUMMARY E ---
Discharge Summary NAME: EDMOND KIMBALL : 1950 AGE: 66Y ADMITTED: 02/22/2017 DISCHARGED: 02/23/2017 ADMISSION DIAGNOSES: 1. Salicylate poisoning. 2. Altered mental status. 3. Weakness. DISCHARGE DIAGNOSES: 1. Salicylate poisoning, resolved. 2. Altered mental status. 3. Weakness, resolved. 4. Hypertension. IMAGING: CT scan of the head was normal. Chest x-ray was normal. HOSPITAL COURSE: The patient is a pleasant 66-year-old female, who has a past medical history of multiple medical problems including CVA, tobacco abuse, morbid obesity, chronic headache. She came to the emergency 5 days ago, diagnosed with UTI and placed on Macrodantin. The patient's workup was unremarkable. She complained of tremor, confusion, palpitations. She had a chronic headache and she took 5 grams of aspirin, as well as Tylenol. The liver was checked and the patient did not have any acidosis on admission. Her salicylate level was*------* when she came and has come down to 15 and 13 is the normal range. She received IV fluids. The symptoms resolved. She wanted to go home today. PHYSICAL EXAMINATION: GENERAL: The patient lying in bed, comfortable, not in distress. VITAL SIGNS: Temperature 98.7, heart rate 80, respirations 17, blood pressure 104/60, saturation 94%. HEENT: Head normocephalic, atraumatic. Pupils round, reactive to light and accommodation bilaterally. Extraocular movements intact. Ears: Tympanic membranes intact bilateral. NECK: Supple. No increased JVD. No thyromegaly. No lymphadenopathy. CARDIOVASCULAR: Normal S1, S2. Regular rate and rhythm. No murmur. No gallop. RESPIRATORY: Lungs clear. ABDOMEN: Soft. Nontender. EXTREMITIES: No edema. NEUROLOGIC: Awake, alert, oriented. LABORATORY DATA: Salicylate level 13. Urine drug screen was negative. White blood count 14. Sodium 142, potassium 3.2, replaced and now is 4.5. DISPOSITION: Send the patient home and followup with her primary care physician in 1 week. DISCHARGE MEDICATIONS: Continue home medications includin. Nitrofurantoin 100 mg p.o. b.i.d. 2. Nasacort daily. 3. Fluorometholone. 4. Diltiazem 120 mg daily. 5. Benzoate 100. 6. Lipitor. DICTATING PHYSICIAN: LINDA WHIPPLE M.D. [id number] PHY#: [id number] ID: [id number] JOB#: [id number] ACCT: [id number] cc:Nico CAMARENA M.D. >
[2017-02-23] MEDS ORDERED: NORMAL SALINE 1000 ML 1,000 ML IV PRN (13:48)
[2017-02-23] MEDS ORDERED: NICOTINE 21 MG/24 HR PATCH.TD24 TD ONE (14:30)
[2017-02-23] MEDS ORDERED: VANCOMYCIN HCL 1,500 MG in DEXTROSE 5%-WATER 250 ML IV ONE (15:00)
[2017-02-23] MEDS: KETOROLAC TROMETHAMINE INJ/PF 30 MG/1 ML SDV IV PRN (15:56)
[2017-02-24] MEDS: HEPARIN SOD (PORCINE) 5,000 UNIT/ML 1 ML SYRINGE SUBCUT SCH (05:02)
[2017-02-24] MEDS: KETOROLAC TROMETHAMINE INJ/PF 30 MG/1 ML SDV IV PRN ×2 (05:34→12:28)
[2017-02-24 08:19] VITALS: BP 127/64
[2017-02-24] MEDS ORDERED: VANCOMYCIN HCL 1,000 MG in DEXTROSE 5%-WATER 250 ML IV SCH (10:00)
[2017-02-24] MEDS ORDERED: NICOTINE 21 MG/24 HR PATCH.TD24 TD SCH (10:00)
--- NOTE | 2017-02-24 10:58 | PROGRESS NOTE E ---
Progress Note NAME: EDMOND KIMBALL : 1950 AGE: 66Y DATE: 02/24/2017 ROOM: 535 SUBJECTIVE: The patient is a pleasant 66-year-old female, who has a past medical history of chronic pain. The patient was admitted with salsalate poisoning with the level of salsalate was elevated at 26. She feels better. The repeated level was normal. She received IV fluids. During her stay, she was supposed to be discharged yesterday; however, she developed an ulcer and fever. That has been addressed. She received vancomycin 1 dose and the second blood test was negative. She started on Levaquin today. She is afebrile. No leukocytosis. No nausea, no vomiting, no fever, no chills. She wants to go home. OBJECTIVE: GENERAL: Patient lying in bed comfortable, not in distress. VITAL SIGNS: Temperature 97.3, heart rate 83, respirations 18, blood pressure 137/64. HEENT: Head normocephalic, atraumatic. Pupils round, reactive to light and accommodation bilaterally. Extraocular movements intact. Ears: Tympanic membranes intact bilateral. No discharge from the ear. No discharge from nose. NECK: Supple. No increased JVD. No thyromegaly. No lymphadenopathy. CARDIOVASCULAR: Normal S1, S2. Regular rate and rhythm. No murmur. No gallop. RESPIRATORY: Lungs clear. ABDOMEN: Soft, nontender. MUSCULOSKELETAL: No edema. NEUROLOGICAL: Awake, alert. SKIN: No rash. LABORATORY: White blood count 10, hematocrit 32. Blood cultures positive 1 out of 2 for Gram-positive cocci. She received vancomycin. ASSESSMENT: 1. SALSALATE POISONING, RESOLVED. 2. POSITIVE BLOOD CULTURE 1 OUT OF 2, PROBABLY CONTAMINATION, RECEIVED VANCOMYCIN ONE DOSE. PLAN: The patient will be discharged home today. She will follow with her primary care physician in 1 week. We will discharge her on Levaquin 500 mg p.o. daily for 1 week just because of bacteremia. The patient was instructed to come to the emergency room if she has a fever. DICTATING PHYSICIAN: LINDA WHIPPLE M.D. [id number] PHY#: [id number] ID: [id number] JOB#: [id number] ACCT: [id number] cc: >
[2017-02-24] MEDS ORDERED: OXYCODONE-ACETAMINOPHEN 5-325 MG TABLET PO PRN (12:24)
[2017-02-24] MEDS ORDERED: BUTALB/ACETAMINOPHEN/CAFFEINE 1 TAB EACH PO PRN (12:25)
[2017-02-24] MEDS: DOCUSATE SODIUM 100 MG CAPSULE PO SCH (12:28)
[2017-02-24] MEDS ORDERED: LEVOFLOXACIN 500 MG TABLET PO ONE (13:00)
[2017-02-25] MEDS ORDERED: LEVOFLOXACIN 500 MG TABLET PO SCH (10:00)
--- NOTE | 2017-02-25 12:17 | DISCHARGE SUMMARY E ---
Discharge Summary NAME: EDMOND KIMBALL : 1950 AGE: 66Y ADMITTED: 02/22/2017 DISCHARGED: 02/24/2017 ADDENDUM: The patient was suppose to be discharged home yesterday. However, she had developed blood culture positive 1 out of 2 for gram-positive cocci, and the second set was negative. She received 1 dose of vancomycin, and the patient wanted to go home today. The discharge was postponed from yesterday, and she is afebrile. She does not have leukocytosis, and the patient wants to go home. DISPOSITION AND DISCHARGE INSTRUCTIONS: She will be discharged home today on oral antibiotic, on Levaquin 500 mg p.o. daily for 1 week, and the patient is instructed to come to the emergency room if she has any fever or chills and to follow up with her primary physician in 1 week. The patient will be discharged today. DICTATING PHYSICIAN: LINDA WHIPPLE M.D. [id number] PHY#: [id number] ID: [id number] JOB#: [id number] ACCT: [id number] cc:SHE MCCABE M.D., ABDELAZIZ M.D. >
--- NOTE | 2017-02-26 14:52 | Progress Note ---
Provider Note Provider Note: #1/ bcx positive for S.hominus, likely contaminant. Pt d/c'd on levaquin. No indications for increased abx therapy.
== END 2017-02-24 13:30 | disposition home or self-care (01) | DRG 918 ==
LOC: ER 21:34 → INTOOBSV 02-22 05:31 → EH 02-22 05:31 → OBSVTOIN 02-22 05:31 → UNDOADMOB 02-22 05:31 → OBSVTOIN 02-22 06:20 → EH 02-22 06:20 → 5 02-22 06:33
PROVIDERS: ADMIT Internal Medicine; ATTEND Internal Medicine
PROC: 00JU3ZZ Inspection of Spinal Canal, Percutaneous Approach (ICD-10-PCS; principal; 2017-02-22)
DX: T39.011A Poisoning by aspirin, accidental (unintentional), initial encounter (principal); R41.82 Altered mental status, unspecified; Y92.9 Unspecified place or not applicable; R51 Headache; E87.6 Hypokalemia; I10 Essential (primary) hypertension; E66.01 Morbid (severe) obesity due to excess calories; Z68.32 Body mass index [BMI] 32.0-32.9, adult; Z79.899 Other long term (current) drug therapy; F17.200 Nicotine dependence, unspecified, uncomplicated; Z86.73 Personal history of transient ischemic attack (TIA), and cerebral infarction without residual deficits; Z88.5 Allergy status to narcotic agent; Z90.49 Acquired absence of other specified parts of digestive tract
CPT/HCPCS: 36415; 36600; 70450; 71010; 71020; 80048; 80053; 80307; 81001; 82140; 82550; 82553; 82803; 83735; 84443; 84484; 85025; 85652; 87040; 87077; 87086; 87088; 87186; 93005; 93010; 94660; 99285; J0133; J1644; J1885; J3370; J3480; J3490; J7030; J7060; J7620

== ENCOUNTER → 2017-03-20 | Outpatient (CLI) | payer MEDICARE ==
[2017-03-20 11:10] LABS: CHOLESTEROL 127.64 mg/dL (0-200); Direct HDL 49 mg/dL (>40); TRIGLYCERIDES 169 mg/dL (<150)
[2017-03-20 11:20] LABS: DIRECT LDL 48 mg/dL (<100)
[2017-03-20 11:24] LABS: VLDL CHOLESTEROL 33.8 mg/dL (10-31)
== END ==
LOC: LAB 10:21
PROVIDERS: ATTEND Family Medicine
DX: E78.5 Hyperlipidemia, unspecified (principal); J44.9 Chronic obstructive pulmonary disease, unspecified; R00.2 Palpitations; Z79.899 Other long term (current) drug therapy
CPT/HCPCS: 36415; 80061; 83036; 84443

== ENCOUNTER → 2017-03-21 | Outpatient (CLI) | payer MEDICAID, MEDICARE ==
--- NOTE | 2017-03-21 18:14 | WOMENS IMAGING REPORT ---
EXAM DESCRIPTION: 3D SCREENING MAMMO BILAT COMPLETED DATE/TIME: 03/21/2017 10:28 am REASON FOR STUDY: ROUTINE SCREENING; Z12.31 Z12.31 ENCNTR SCREEN MAMMOGRAM FOR MALIGNANT NEOPLASM O F ANTHONY COMPARISON: None. TECHNIQUE: Standard craniocaudal and mediolateral oblique views of each breast recorded using digita l acquisition and breast tomosynthesis. LIMITATIONS: None. FINDINGS: Findings present which are benign by mammographic criteria. No suspicious masses, calcifi cations or architectural distortion. Pertinent benign findings: Benign calcifications bilaterally. Read with the assistance of CAD. .[facility] - R2 Cenova Version 1.3 .[facility] - R2 Cenova Version 1.3 .[facility] - R2 Cenova Version 2.4 .[facility] - R2 Cenova Version 2.4 .[facility] - R2 [place] Setter Version 9.2 Benign mammographic findings may include one or more of the following: Smooth masses, popcorn/rim/co arse calcifications, asymmetries, post-procedure changes, and lesions with long-standing stability. IMPRESSION: BENIGN MAMMOGRAPHIC FINDINGS. BIRADS 2 BREAST DENSITY: b. There are scattered areas of fibroglandular density. BIRAD: 2 BENIGN FINDING(S) RECOMMENDATION: RECOMMENDATION: ROUTINE SCREENING Please continue yearly bilateral screening tomosynthesis in March 2018 COMMENT: The patient has been notified of the results by letter per [place] requirements. Additional no tification policies are in place for contacting patient with suspicious or incomplete findings. Quality ID #[id number]: The [employer] recommends an annual screening mammogram for women aged 40 years or over. This facility utilizes a reminder system to ensure that all patients receive reminder letters, and/or direct phone calls for appointments. This includes reminders for routine scr eening mammograms, diagnostic mammograms, or other Breast Imaging Interventions when appropriate. Th is patient will be placed in the appropriate reminder system. The [employer] (ACR) has developed recommendations for screening MRI of the breast s in certain patient populations, to be used in conjunction with mammography. Breast MRI surveillanc e may be appropriate for women with more than 20% lifetime risk of developing breast cancer as deter mined by genetic testing, significant family history of the disease, or history of mantle radiation f or Hodgkins Disease. ACR Practice Guidelines 2008. DBT Technology DBT is a type of tomographic mammography. With conventional mammography, overlapping breast tissue ma y make lesions difficult to detect, even with good compression. DBT uses an x-ray tube that rotates a round the breast, taking images at different angles. These images are then combined to create thin sl ices of the breast that the radiologist can view as a 3D reconstruction. The [employer] unit can perform full-field digital mammograms (2D imaging); or DBT (3D imaging); or both, in a combination mode that quickly performs both the mammogram and the tomosynthesis scan while the breast is still compressed. PQRS 6045F: Fluoroscopic imaging is not utilized for breast tomosynthesis. TECHNICAL DOCUMENTATION: FINDING NUMBER: (1) ASSESSMENT: (1) JOB ID: [id number] [employer]- All Rights Reserved
== END ==
LOC: WI 10:26
PROVIDERS: ATTEND Family Medicine
DX: Z12.31 Encounter for screening mammogram for malignant neoplasm of breast (principal)
CPT/HCPCS: 77063; G0202; 77067

== ENCOUNTER → 2017-03-29 | Outpatient (CLI) | payer MEDICARE ==
[2017-03-29 12:13] LABS: HEMATOCRIT 45.2 % (36.0-47.0); HEMOGLOBIN 15.6 g/dL (12.0-15.5); HGB HCT DIFFERENCE 1.6; MEAN CORPUSCULAR HEMOGLOBIN 32.2 pg (27.0-33.4); MEAN CORPUSCULAR HGB CONC 34.5 g/dL (32.0-36.0); MEAN CORPUSCULAR VOLUME 94 fl (80-97); RED BLOOD COUNT 4.84 10^6/uL (3.72-5.28); RED CELL DISTRIBUTION WIDTH 14.2 % (11.5-14.0); WHITE BLOOD COUNT 14.8 10^3/uL (4.0-10.5)
--- NOTE | 2017-03-29 12:47 | RADIOLOGY REPORT (SQ) ---
EXAM DESCRIPTION: KUB/ABDOMEN (SINGLE VIEW) COMPLETED DATE/TIME: 03/29/2017 12:02 pm REASON FOR STUDY: LLQ PAIN/SLOW TRANSIT CONSTIPATION R10.32 LEFT LOWER QUADRANT PAIN K59.01 SLOW T RANSIT CONSTIPATION COMPARISON: None. NUMBER OF VIEWS: One view. TECHNIQUE: Supine radiographic image of the abdomen acquired. LIMITATIONS: None. FINDINGS: BOWEL GAS PATTERN: Normal bowel gas pattern. No dilated loops. CALCIFICATIONS: No suspicious calcifications. SOFT TISSUES: No gross mass or suggestion of organomegaly. HARDWARE: Surgical clips are identified in the right upper quadrant. BONES: No acute fracture. A lumbar scoliosis convex to the right is identified with degenerative yi nges. OTHER: Vascular calcifications are identified. IMPRESSION: NO RADIOGRAPHIC EVIDENCE FOR ACUTE ABDOMINAL DISEASE. TECHNICAL DOCUMENTATION: JOB ID: [id number] [employer]- All Rights Reserved
== END ==
LOC: RAD 11:42
PROVIDERS: ATTEND Physician Assistant Surgical
DX: R10.32 Left lower quadrant pain (principal); K62.5 Hemorrhage of anus and rectum; K59.01 Slow transit constipation
CPT/HCPCS: 36415; 74000; 85027

== ENCOUNTER 2017-06-03 15:48 | Emergency (ER) | payer MEDICARE ==
[2017-06-03 16:11] VITALS: BP 113/67
--- NOTE | 2017-06-03 16:48 | ER Document Report ---
ED General - General Chief Complaint: Irregular Pulse Stated Complaint: FAST HEART RATE Time Seen by Provider: 06/03/17 16:22 Mode of Arrival: Ambulatory Information source: Patient Notes: 65-year-old female history of A. fib on Cardizem presents with complaints of palpitation. Patient notes at 4:00 this morning she awoke suddenly and her heart was racing. She notes racing sensation is stopped, but feels her heart beat all throuhgout her body currently. TRAVEL OUTSIDE OF THE [place] IN LAST 30 DAYS: No - HPI Onset: This morning Onset/Duration: Sudden Quality of pain: No pain Severity: Mild Pain Level: Denies Associated symptoms: Other Exacerbated by: Denies Relieved by: Denies Similar symptoms previously: Yes Recently seen / treated by doctor: Yes - Related Data Allergies/Adverse Reactions: codeine Allergy (Verified 06/03/17 15:50) Past Medical History - Social History Smoking Status: Current Every Day Smoker Cigarette use (# per day): Yes Chew tobacco use (# tins/day): No Smoking Education Provided: No Frequency of alcohol use: None Drug Abuse: None Family History: COPD Patient has suicidal ideation: No Patient has homicidal ideation: No Neurological Medical History: Reports: Hx Cerebrovascular Accident - 2 years ago , Hx Seizures Renal/ Medical History: Denies: Hx Peritoneal Dialysis Musculoskeltal Medical History: Reports Hx Arthritis Psychiatric Medical History: Denies: Hx Depression Past Surgical History: Reports: Hx Cardiac Surgery - pacemaker, Hx Cholecystectomy - Immunizations Hx Diphtheria, Pertussis, Tetanus Vaccination: No Review of Systems - Review of Systems Notes: REVIEW OF SYSTEMS: CONSTITUTIONAL : Denies fever, chills, or sweats. Denies recent illness. EENT: Denies eye, ear, throat, or mouth pain or symptoms. Denies nasal or sinus congestion or discharge. Denies throat, tongue, or mouth swelling or difficulty swallowing. CARDIOVASCULAR: Admits to palpitations RESPIRATORY: Denies cough, cold, or chest congestion. Denies shortness of breath, difficulty breathing, or wheezing. GASTROINTESTINAL: Denies abdominal pain or distention. Denies nausea, vomiting , or diarrhea. Denies blood in vomitus, stools, or per rectum. Denies black, tarry stools. Denies constipation. GENITOURINARY: Denies difficulty urinating, painful urination, burning, frequency, blood in urine, or discharge. FEMALE GENITOURINARY: Denies vaginal bleeding, heavy or abnormal periods, irregular periods. Denies vaginal discharge or odor. MUSCULOSKELETAL: Denies back or neck pain or stiffness. Denies joint pain or swelling. SKIN: Denies rash, lesions or sores. HEMATOLOGIC : Denies easy bruising or bleeding. LYMPHATIC: Denies swollen, enlarged glands. NEUROLOGICAL: Denies confusion or altered mental status. Denies passing out or loss of consciousness. Denies dizziness or lightheadedness. Denies headache. Denies weakness or paralysis or loss of use of either side. Denies problems with gait or speech. Denies sensory loss, numbness, or tingling. Denies seizures. PSYCHIATRIC: Denies anxiety or stress. Denies depression, suicidal ideation, or homicidal ideation. ALL OTHER SYSTEMS REVIEWED AND NEGATIVE. PHYSICAL EXAMINATION: GENERAL: Well-appearing, well-nourished and in no acute distress. HEAD: Atraumatic, normocephalic. EYES: Pupils equal round and reactive to light, extraocular movements intact, conjunctiva are normal. ENT: Nares patent, oropharynx clear without exudates. Moist mucous membranes. NECK: Normal range of motion, supple without lymphadenopathy LUNGS: Breath sounds clear to auscultation bilaterally and equal. No wheezes rales or rhonchi. HEART: Regular rate and rhythm without murmurs ABDOMEN: Soft, nontender, nondistended abdomen. No guarding, no rebound. No masses appreciated. Female : deferred Musculoskeletal: Normal range of motion, no pitting or edema. No cyanosis. NEUROLOGICAL: Cranial nerves grossly intact. Normal speech, normal gait. Normal sensory, motor exams PSYCH: Normal mood, normal affect. SKIN: Warm, Dry, normal turgor, no rashes or lesions noted. 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 But noted no significant obvious abnormality mild hypokalemia noted otherwise patient is stable for discharge with very strict return precautions. Given that she is having no chest pain no symptoms otherwise I believe she is stable for discharge After performing a Medical Screening Examination, I estimate there is LOW risk for RUPTURED ESOPHAGUS, PNEUMOTHORAX, PULMONARY EMBOLISM, ACUTE CORONARY SYNDROME, OR THORACIC AORTIC DISSECTION, thus I consider the discharge disposition reasonable. I have reevaluated this patient multiple times and no significant life threatening changes are noted. The patient and I have discussed the diagnosis and risks, and we agree with discharging home with close follow-up. We also discussed returning to the Emergency Department immediately if new or worsening symptoms occur. We have discussed the symptoms which are most concerning (e.g., bloody sputum, worsening pain or shortness of breath) that necessitate immediate return. - Vital Signs Vital signs: Temp Pulse Resp BP Pulse Ox 98.5 F 80 20 113/67 93 06/03/17 16:10 06/03/17 16:10 06/03/17 16:10 06/03/17 16:10 06/03/17 16:10 - Laboratory Result Diagrams: 06/03/17 16:45 06/03/17 16:45 Laboratory results interpreted by me: 06/03/17 06/03/17 16:45 16:45 WBC 13.2 H RDW 14.7 H Plt Count 149 L Seg Neutrophils % 81.3 H Lymphocytes % 12.0 L Absolute Neutrophils 10.7 H Potassium 3.4 L BUN 21 H Glucose 120 H Total Protein 6.1 L - EKG Interpretation by Tn EKG shows normal: Sinus rhythm, [place], Intervals, QRS Complexes Discharge - Discharge Clinical Impression: Palpitation Condition: Stable Disposition: HOME, SELF-CARE Instructions: Palpitations (Irregular or Rapid Heartrate) ([facility]) Referrals: GARRET HURT MD [ACTIVE STAFF] - Follow up tomorrow
[2017-06-03 16:57] LABS: ABSOLUTE BASOPHILS # (AUTO) 0.1 10^3/uL (0.0-0.2); ABSOLUTE LYMPHOCYTES (AUTO) 1.6 10^3/uL (0.5-4.7); ABSOLUTE MONOCYTES (AUTO) 0.8 10^3/uL (0.1-1.4); ABSOLUTE NEUT (AUTO) 10.7 10^3/uL (1.7-8.2); HEMATOCRIT 43.4 % (36.0-47.0); HEMOGLOBIN 14.8 g/dL (12.0-15.5); MEAN CORPUSCULAR HEMOGLOBIN 31.4 pg (27.0-33.4); MEAN CORPUSCULAR VOLUME 92 fl (80-97); MONOCYTES % (AUTO) 5.7 % (3-13); RED CELL DISTRIBUTION WIDTH 14.7 % (11.5-14.0); SEGMENTED NEUTROPHILS % (AUTO) 81.3 % (42-78); WHITE BLOOD COUNT 13.2 10^3/uL (4.0-10.5)
[2017-06-03 17:18] LABS: ALANINE AMINOTRANSFERASE 24 U/L (9-52); ALBUMIN 3.7 g/dL (3.5-5.0); ALKALINE PHOSPHATASE 79 U/L (38-126); ANION GAP 9 (5-19); ASPARTATE AMINO TRANSFERASE 15 U/L (14-36); BILIRUBIN,DIRECT 0.2 mg/dL (0.0-0.4); BILIRUBIN,TOTAL 0.5 mg/dL (0.2-1.3); BLOOD UREA NITROGEN 21 mg/dL (7-20); CALCIUM 9.9 mg/dL (8.4-10.2); CARBON DIOXIDE 28 mmol/L (22-30); CHLORIDE 107 mmol/L (98-107); CREATININE RESULT 0.83 mg/dL (0.52-1.25); GLUCOSE 120 mg/dL (75-110); POTASSIUM 3.4 mmol/L (3.6-5.0); SODIUM 143.8 mmol/L (137-145); TOTAL PROTEIN 6.1 g/dL (6.3-8.2)
[2017-06-03] MEDS ORDERED: TRAMADOL HCL 50 MG TABLET PO ONE (17:54)
--- NOTE | 2017-06-03 22:14 | EKG REPORT ---
SEVERITY:- NORMAL ECG - SINUS RHYTHM : Confirmed by: Milo Marx 03-Jun-2017 22:13:34
== END 2017-06-03 18:02 | disposition home or self-care (01) ==
LOC: ER 15:48
DX: R00.2 Palpitations (principal); I48.91 Unspecified atrial fibrillation; F17.210 Nicotine dependence, cigarettes, uncomplicated; Z79.02 Long term (current) use of antithrombotics/antiplatelets; Z95.0 Presence of cardiac pacemaker; Z90.49 Acquired absence of other specified parts of digestive tract; Z88.6 Allergy status to analgesic agent
CPT/HCPCS: 93005; 99285; 36415; 84443; 85025; 80053; 93010; A9270

== ENCOUNTER → 2017-07-08 | Outpatient (CLI) | payer MEDICARE ==
--- NOTE | 2017-07-08 14:24 | WOMENS IMAGING REPORT ---
EXAM DESCRIPTION: U/S BREAST UNILAT LIMITED COMPLETED DATE/TIME: 07/08/2017 1:45 pm REASON FOR STUDY: UNSPECIFIED LUMP; N63.20, N63.10; N63.10, N63.20 N63.10 UNSPECIFIED LUMP IN THE R IGHT BREAST, UNSPECIFIED MARU N63.20 UNSPECIFIED LUMP IN THE LEFT BREAST, UNSPECIFIED QUAD COMPARISON: None. TECHNIQUE: Real-time and static grayscale imaging performed of the right and left breast targeted to the area of clinical/mammographic concern. Selected color Doppler images recorded. LIMITATIONS: None. FINDINGS: MASS: No mass identified. Normal glandular tissue. OTHER: No other significant finding. IMPRESSION: No suspicious findings detected by ultrasound. BIRAD: 1 Negative. RECOMMENDATION: RECOMMENDED FOLLOW-UP: Follow-up as clinically indicated. COMMENT: The [employer] (ACR) has developed recommendations for screening MRI of the breasts in certain patient populations, to be used in conjunction with mammography. Breast MRI s urveillance may be appropriate for women with more than 20% lifetime risk of developing breast cancer as determined by genetic testing, significant family history of the disease, or history of mantle r adiation for Hodgkins Disease. ACR Practice Guidelines 2008. TECHNICAL DOCUMENTATION: JOB ID: [id number] [employer]- All Rights Reserved
== END ==
LOC: WI 12:54
PROVIDERS: ATTEND Family Medicine
DX: N63.10 Unspecified lump in the right breast, unspecified quadrant (principal); N63.20 Unspecified lump in the left breast, unspecified quadrant
CPT/HCPCS: 76642

== ENCOUNTER 2017-08-10 08:25 | Emergency (ER) | payer MEDICARE ==
--- NOTE | 2017-08-10 09:31 | RADIOLOGY REPORT (SQ) ---
EXAM DESCRIPTION: CHEST PA/LAT COMPLETED DATE/TIME: 08/10/2017 8:58 am REASON FOR STUDY: cough, sob COMPARISON: 02/20/2017 EXAM PARAMETERS: NUMBER OF VIEWS: two views TECHNIQUE: Digital Frontal and Lateral radiographic views of the chest acquired. RADIATION DOSE: NA LIMITATIONS: none FINDINGS: LUNGS AND PLEURA: No opacities, masses or pneumothorax. No pleural effusion. MEDIASTINUM AND HILAR STRUCTURES: No masses or contour abnormalities. HEART AND VASCULAR STRUCTURES: Heart normal size. No evidence for failure. BONES: No acute findings. HARDWARE: Stable position of pacemaker. OTHER: No other significant finding. IMPRESSION: NO SIGNIFICANT RADIOGRAPHIC FINDING IN THE CHEST. TECHNICAL DOCUMENTATION: JOB ID: [id number] [employer]- All Rights Reserved Reading location - IP/workstation name: [email or web address]
--- NOTE | 2017-08-10 09:53 | ER Document Report ---
ED General - General Chief Complaint: Cough Stated Complaint: COUGHING Time Seen by Provider: 08/10/17 08:41 Mode of Arrival: Ambulatory Information source: Patient Notes: 66-year-old female presents with complaints of a cough of now 2 week duration. Patient notes it is nonproductive, patient was seen by primary care physician diagnosed with sinusitis placed on 10 days of azithromycin. Patient has Terry Kiser at home but notes she continues coughing. She admits to chest wall pain and abdominal pain only when she coughs Patient denies any DVT PE risk factors TRAVEL OUTSIDE OF THE [place] IN LAST 30 DAYS: No - HPI Onset: Other - 2 week duration Onset/Duration: Persistent Quality of pain: Achy Severity: Mild Pain Level: 1 Associated symptoms: Nonproductive cough Exacerbated by: Coughing Relieved by: Denies Similar symptoms previously: Yes Recently seen / treated by doctor: Yes - Related Data Allergies/Adverse Reactions: codeine Allergy (Verified 08/10/17 08:25) Past Medical History - Social History Smoking Status: Current Every Day Smoker Cigarette use (# per day): Yes Chew tobacco use (# tins/day): No Smoking Education Provided: Yes - Patient counselled regarding cessation for 4 minutes Family History: COPD Patient has suicidal ideation: No Patient has homicidal ideation: No Neurological Medical History: Reports: Hx Cerebrovascular Accident - 2 years ago , Hx Seizures Renal/ Medical History: Denies: Hx Peritoneal Dialysis Musculoskeltal Medical History: Reports Hx Arthritis Psychiatric Medical History: Denies: Hx Depression Past Surgical History: Reports: Hx Cardiac Surgery - pacemaker, Hx Cholecystectomy - Immunizations Hx Diphtheria, Pertussis, Tetanus Vaccination: No Review of Systems - Review of Systems Notes: REVIEW OF SYSTEMS: CONSTITUTIONAL : Denies fever, chills, or sweats. Denies recent illness. EENT: Denies eye, ear, throat, or mouth pain or symptoms. Denies nasal or sinus congestion or discharge. Denies throat, tongue, or mouth swelling or difficulty swallowing. CARDIOVASCULAR: Denies chest pain. Denies palpitations or racing or irregular heart beat. Denies ankle edema. RESPIRATORY: Admits to cough GASTROINTESTINAL: Denies abdominal pain or distention. Denies nausea, vomiting , or diarrhea. Denies blood in vomitus, stools, or per rectum. Denies black, tarry stools. Denies constipation. GENITOURINARY: Denies difficulty urinating, painful urination, burning, frequency, blood in urine, or discharge. FEMALE GENITOURINARY: Denies vaginal bleeding, heavy or abnormal periods, irregular periods. Denies vaginal discharge or odor. MUSCULOSKELETAL: Denies back or neck pain or stiffness. Denies joint pain or swelling. SKIN: Denies rash, lesions or sores. HEMATOLOGIC : Denies easy bruising or bleeding. LYMPHATIC: Denies swollen, enlarged glands. NEUROLOGICAL: Denies confusion or altered mental status. Denies passing out or loss of consciousness. Denies dizziness or lightheadedness. Denies headache. Denies weakness or paralysis or loss of use of either side. Denies problems with gait or speech. Denies sensory loss, numbness, or tingling. Denies seizures. PSYCHIATRIC: Denies anxiety or stress. Denies depression, suicidal ideation, or homicidal ideation. ALL OTHER SYSTEMS REVIEWED AND NEGATIVE. PHYSICAL EXAMINATION: GENERAL: Appears older than stated age HEAD: Atraumatic, normocephalic. EYES: Pupils equal round and reactive to light, extraocular movements intact, conjunctiva are normal. ENT: Nares patent, oropharynx clear without exudates. Moist mucous membranes. NECK: Normal range of motion, supple without lymphadenopathy LUNGS: Breath sounds clear to auscultation bilaterally and equal. No wheezes rales or rhonchi. HEART: Regular rate and rhythm without murmurs ABDOMEN: Soft, nontender, nondistended abdomen. No guarding, no rebound. No masses appreciated. Female : deferred Musculoskeletal: Normal range of motion, no pitting or edema. No cyanosis. NEUROLOGICAL: Cranial nerves grossly intact. Normal speech, normal gait. Normal sensory, motor exams PSYCH: Normal mood, normal affect. SKIN: Warm, Dry, normal turgor, no rashes or lesions noted. Dictation was performed using [employer] voice recognition software Physical Exam - Vital signs Vitals: Temp Pulse Resp BP Pulse Ox 97.8 F 80 20 95/65 L 93 08/10/17 08:33 08/10/17 08:33 08/10/17 08:33 08/10/17 08:33 08/10/17 08:33 Course - Re-evaluation Re-evalutation: 08/10/17 14:47 This is a 66-year-old female smoker who presents with complaints of cough nonproductive, chest x-ray noted no acute abnormality, patient overall looks well is in no distress, she will be given steroids and very strict return precautions. She already has inhaler at home, she is in no respiratory distress here, patient was ambulated and was satting 95% on room air After performing a Medical Screening Examination, I estimate there is LOW risk for ACUTE CORONARY SYNDROME, PULMONARY EMBOLI, RESPIRATORY FAILURE, SEPSIS OR MENINGITIS, thus I consider the discharge disposition reasonable. I have reevaluated this patient multiple times and no significant life threatening changes are noted. The patient and I have discussed the diagnosis and risks, and we agree with discharging home with close follow-up. We also discussed returning to the Emergency Department immediately if new or worsening symptoms occur. We have discussed the symptoms which are most concerning (e.g., changing or worsening pain, trouble swallowing or breathing, neck stiffness, fever) that necessitate immediate return. - Vital Signs Vital signs: Temp Pulse Resp BP Pulse Ox 97.5 F 100 16 117/72 97 08/10/17 10:13 08/10/17 10:13 08/10/17 10:13 08/10/17 10:13 08/10/17 10:13 - Diagnostic Test Radiology reviewed: Image reviewed, Reports reviewed - No acute abnormality Discharge - Discharge Clinical Impression: Cough Sinusitis Qualifiers: Sinusitis location: frontal Chronicity: acute Recurrence: non-recurrent Qualified Code(s): J01.10 - Acute frontal sinusitis, unspecified Condition: Stable Disposition: HOME, SELF-CARE Instructions: Cough Suppressant & Expectorant Medications Prescriptions: Benzonatate [Tessalon Perle 100 mg Capsule] 100 mg PO Q8HP PRN #40 cap PRN Reason: Prednisone 60 mg PO DAILY 5 Days tablet Referrals: PARUL RODRIGUEZ MD [Primary Care Provider] - Follow up tomorrow
[2017-08-10] MEDS ORDERED: KETOROLAC TROMETHAMINE 60 MG/2 ML SDV IM ONE (09:55)
[2017-08-10 10:13] VITALS: BP 117/72
== END 2017-08-10 10:13 | disposition home or self-care (01) ==
LOC: ER 08:25
DX: R05 Cough (principal); J01.10 Acute frontal sinusitis, unspecified; F17.210 Nicotine dependence, cigarettes, uncomplicated; Z71.6 Tobacco abuse counseling; Z88.5 Allergy status to narcotic agent
CPT/HCPCS: 99283; 96372; 71046; J1885

== ENCOUNTER → 2017-12-27 | Outpatient (CLI) | payer MEDICARE ==
--- NOTE | 2017-12-27 15:05 | WOMENS IMAGING REPORT ---
EXAM DESCRIPTION: U/S PELVIS NON-OB COMPLETED DATE/TIME: 12/27/2017 2:09 pm REASON FOR STUDY: LEFT LOWER QUADRANT PAIN R10.32 LEFT LOWER QUADRANT PAIN COMPARISON: None. TECHNIQUE: Dynamic and static grayscale images acquired of the pelvis via transabdominal approach an d recorded on PACS. Additional selected color Doppler and spectral images recorded. LIMITATIONS: None. FINDINGS: UTERUS: Contour normal. No mass. ENDOMETRIAL STRIPE: No focal or generalized thickening. No masses. CERVIX: No nabothian cysts. RIGHT OVARY AND DOPPLER: Ovary not visualized. LEFT OVARY AND DOPPLER: Ovary not visualized. FREE FLUID: None noted. OTHER: No other significant finding. MEASUREMENTS: UTERUS: 2.4 x 3.2 x 7.0 cm. ENDOMETRIAL STRIPE: 4 mm. RIGHT OVARY: Not visualized. LEFT OVARY: Not visualized. IMPRESSION: OVARIES NOT VISUALIZED. OTHERWISE UNREMARKABLE PELVIC ULTRASOUND BY TRANSABDOMINAL JOYCE ELIZALDE. TECHNICAL DOCUMENTATION: JOB ID: [id number] [employer]- All Rights Reserved Rev Reading location - IP/workstation name: [email or web address]
== END ==
LOC: WI 12:45
PROVIDERS: ATTEND Internal Medicine
DX: R10.32 Left lower quadrant pain (principal)
CPT/HCPCS: 76856

== ENCOUNTER → 2018-02-13 | Outpatient (CLI) | payer MEDICARE | LOC: OD 11:31 | PROVIDERS: ATTEND Internal Medicine | DX: R73.9 Hyperglycemia, unspecified (principal) | CPT/HCPCS: 36415; 83036 ==

== ENCOUNTER 2018-02-15 22:03 | Emergency (ER) | payer MEDICARE ==
[2018-02-15] MEDS ORDERED: ASPIRIN 81 MG TABLET, CHEWABLE PO ONE (22:37)
[2018-02-15 22:55] LABS: HEMATOCRIT 41.1 % (36.0-47.0); HEMOGLOBIN 14.4 g/dL (12.0-15.5); MEAN CORPUSCULAR HGB CONC 34.9 g/dL (32.0-36.0); MEAN CORPUSCULAR VOLUME 92 fl (80-97); PLATELET COUNT 156 10^3/uL (150-450); RED BLOOD COUNT 4.48 10^6/uL (3.72-5.28); RED CELL DISTRIBUTION WIDTH 14.8 % (11.5-14.0)
[2018-02-15 23:06] LABS: ALANINE AMINOTRANSFERASE 24 U/L (9-52); ALBUMIN 3.6 g/dL (3.5-5.0); ALKALINE PHOSPHATASE 66 U/L (38-126); ANION GAP 9 (5-19); ASPARTATE AMINO TRANSFERASE 19 U/L (14-36); BILIRUBIN,DIRECT 0.2 mg/dL (0.0-0.4); BILIRUBIN,TOTAL 0.6 mg/dL (0.2-1.3); BLOOD UREA NITROGEN 15 mg/dL (7-20); CALCIUM 9.2 mg/dL (8.4-10.2); CARBON DIOXIDE 28 mmol/L (22-30); CHLORIDE 101 mmol/L (98-107); CREATINE KINASE 24 U/L (30-135); GLUCOSE 139 mg/dL (75-110); POTASSIUM 3.2 mmol/L (3.6-5.0); SODIUM 137.8 mmol/L (137-145); TOTAL PROTEIN 6.2 g/dL (6.3-8.2)
[2018-02-15 23:19] LABS: CREATINE KINASE MB 0.26 ng/mL (<4.55)
--- NOTE | 2018-02-15 23:23 | RADIOLOGY REPORT (SQ) ---
EXAM DESCRIPTION: XR CHEST 1 VIEW COMPLETED DATE/TME: 02/15/2018 22:37 CLINICAL HISTORY: 66 years Female, chest pain COMPARISON: 3.3.18 NUMBER OF VIEWS/TECHNIQUE: 1/AP FINDINGS: Adequate lung volume, clear parenchyma, normal cardiac silhouette, and intact bony thorax. Left cardiac stimulator with leads. IMPRESSION: No acute cardiopulmonary findings.
[2018-02-15 23:28] LABS: TROPONIN I < 0.012 ng/mL
--- NOTE | 2018-02-16 00:12 | ER Document Report ---
ED General - General Chief Complaint: Chest Pain Stated Complaint: CHEST PAIN Time Seen by Provider: 02/15/18 23:27 Notes: Patient is a 66-year-old female with a past medical history of a prior CVA, hyperlipidemia, current tobacco use who presents with approximately 5-6 days of intermittent chest discomfort. 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 She describes this as a pressure sensation in her low sternum worsened by touching the area. Nothing improves the pain. She states that she became nervous today when the pain recurred as she had some numbness in her right hand she also notes that she has had recurrently over the past several weeks. She currently denies any symptoms. No associated shortness of breath, nausea or vomiting. She has no prior cardiac disease in the past. She has never required cardiac catheterization. TRAVEL OUTSIDE OF THE [place] IN LAST 30 DAYS: No - Related Data Allergies/Adverse Reactions: codeine Allergy (Verified 02/15/18 23:20) Past Medical History - General Information source: Patient - Social History Smoking Status: Current Every Day Smoker Cigarette use (# per day): Yes - 1 pack per day Chew tobacco use (# tins/day): No Smoking Education Provided: Yes - Smoking cessation counseling was provided for 4 minutes at the bedside Frequency of alcohol use: None Drug Abuse: None Lives with: Family Family History: COPD Patient has suicidal ideation: No Patient has homicidal ideation: No Neurological Medical History: Reports: Hx Cerebrovascular Accident - 2 years ago , Hx Seizures Renal/ Medical History: Denies: Hx Peritoneal Dialysis Musculoskeletal Medical History: Reports Hx Arthritis Psychiatric Medical History: Denies: Hx Depression Past Surgical History: Reports: Hx Cardiac Surgery - pacemaker, Hx Cholecystectomy - Immunizations Hx Diphtheria, Pertussis, Tetanus Vaccination: No Review of Systems - Review of Systems Notes: Constitutional: Negative for fever. HENT: Negative for sore throat. Eyes: Negative for visual changes. Cardiovascular: Positive for chest pain. Respiratory: Negative for shortness of breath. Gastrointestinal: Negative for abdominal pain, vomiting or diarrhea. Genitourinary: Negative for dysuria. Musculoskeletal: Negative for back pain. Skin: Negative for rash. Neurological: Negative for headaches, weakness or numbness. 10 point ROS negative except as marked above and in HPI. Physical Exam - Vital signs Vitals: Temp Pulse Resp BP Pulse Ox 98.2 F 64 20 117/55 L 94 02/15/18 22:19 02/15/18 22:19 02/15/18 22:19 02/15/18 22:19 02/15/18 22:19 Interpretation: Normal Notes: PHYSICAL EXAMINATION: GENERAL: Well-appearing, well-nourished and in no acute distress. HEAD: Atraumatic, normocephalic. EYES: Pupils equal round and reactive to light, extraocular movements intact, sclera anicteric, conjunctiva are normal. ENT: nares patent, oropharynx clear without exudates. Moist mucous membranes. NECK: Normal range of motion, supple without lymphadenopathy LUNGS: Breath sounds clear to auscultation bilaterally and equal. No wheezes rales or rhonchi. HEART: Regular rate and rhythm without murmurs ABDOMEN: Soft, nontender, normoactive bowel sounds. No guarding, no rebound. No masses appreciated. EXTREMITIES: Normal range of motion, no pitting or edema. No cyanosis. NEUROLOGICAL: No focal neurological deficits. Moves all extremities spontaneously and on command. PSYCH: Normal mood, normal affect. SKIN: Warm, Dry, normal turgor, no rashes or lesions noted. Course - Re-evaluation Re-evalutation: 02/16/18 00:10 Presentation of chest pain in an otherwise well appearing patient. Low clinical suspicion for ACS given clinical history, exam, EKG without ST elevations or depressions, and negative initial troponin. PE also seems unlikely given clinical history, absence of tachycardia or dyspnea. Patient is PERC criteria negative. CXR without evidence of pneumothorax or pneumonia. No widened mediastinum. Aortic dissection also seems unlikely given history, symmetric pulses, CXR, and vitals. Patient has had similar recurrent episodes of chest discomfort since earlier this month, has a scheduled stress test with her home restoration service supervisor. She denies any ongoing pain. Will obtain a repeat troponin if this remains normal plan for outpatient follow-up as she has a scheduled stress test within the next several days. Patient is very agreeable to this plan, does not wish to be hospitalized. 02/16/18 03:08 Repeat troponin remains normal the patient remains asymptomatic. At this time will discharge with return precautions and follow-up recommendations. Verbal discharge instructions given a the bedside and opportunity for questions given. Medication warnings reviewed. Patient is in agreement with this plan and has verbalized understanding of return precautions and the need for primary care follow-up in the next 24-72 hours. - Vital Signs Vital signs: Temp Pulse Resp BP Pulse Ox 98.2 F 64 16 103/48 L 93 02/15/18 22:19 02/15/18 22:19 02/16/18 02:01 02/16/18 02:01 02/16/18 02:01 - Laboratory Result Diagrams: 02/15/18 22:40 02/15/18 22:40 Laboratory results interpreted by me: 02/15/18 02/15/18 22:40 22:40 WBC 14.0 H RDW 14.8 H Seg Neuts % (Manual) 79 H Abs Neuts (Manual) 11.1 H Potassium 3.2 L Glucose 139 H Creatine Kinase 24 L Total Protein 6.2 L - Diagnostic Test Radiology reviewed: Image reviewed, Reports reviewed Radiology results interpreted by me: 02/16/18 00:11 Chest x-ray: No acute infiltrate or pneumothorax - EKG Interpretation by Me Additional EKG results interpreted by me: 02/16/18 00:11 Sinus rhythm. Rate 85. PACs. No ST elevations or depressions. QTC is 414. Discharge - Discharge Clinical Impression: Intermittent chest pain Condition: Good Disposition: HOME, SELF-CARE Additional Instructions: You were seen today for chest pain. The exact cause of your pain is unclear. However, based on your cardiac enzyme testing, chest x-ray, and EKG it does not appear that it is from an immediately life-threatening cause at this time. Although your testing here is normal is critical that you follow-up with your primary care physician for continued evaluation of this chest pain and possible stress testing. I recommended you see your physician within the next 24-48 hours to be evaluated for consideration of a stress test. Please return to emergency department immediately if you have worsening of your chest pain, shortness of breath, vomiting, become unable to exert yourself due to pain or difficulty breathing, you pass out, or have any pain that radiates into your arms, jaw, or back. Please also return if you have any additional symptoms that are concerning to you. Referrals: CHRISTY COHEN MD [Primary Care Provider] - Follow up as needed
[2018-02-16 00:23] LABS: ABSOLUTE LYMPHOCYTES# (MANUAL) 2.1 10^3/uL (0.5-4.7); ABSOLUTE MONOCYTES # (MANUAL) 0.8 10^3/uL (0.1-1.4); ABSOLUTE NEUTROPHILS# (MANUAL) 11.1 10^3/uL (1.7-8.2); BASOPHILS % (MANUAL) 0 % (0-2); EOSINOPHILS % (MANUAL) 0 % (0-6); LYMPHOCYTES % (MANUAL) 15 % (13-45); MONOCYTES % (MANUAL) 6 % (3-13); SEGMENTED NEUTROPHILS % (MAN) 79 % (42-78); TOTAL CELLS COUNTED 100
[2018-02-16 00:25] LABS: OVALOCYTES SLIGHT; PLATELET COMMENT ADEQUATE; POIKILOCYTOSIS SLIGHT; TEAR DROP CELLS SLIGHT; TOXIC GRANULATION SLIGHT; TOXIC VACUOLATION PRESENT
[2018-02-16] MEDS ORDERED: ACETAMINOPHEN 325 MG TABLET PO ONE (01:56)
[2018-02-16] MEDS ORDERED: KETOROLAC TROMETHAMINE 60 MG/2 ML SDV IM ONE ×2 (02:12→02:14)
[2018-02-16 03:17] VITALS: BP 103/47
--- NOTE | 2018-02-16 08:31 | EKG REPORT ---
SEVERITY:- ABNORMAL ECG - SINUS RHYTHM MULTIPLE ATRIAL PREMATURE COMPLEXES : Confirmed by: Bernnan Bales MD 16-Feb-2018 08:30:26
== END 2018-02-16 03:25 | disposition home or self-care (01) ==
LOC: ER 22:03
DX: R07.9 Chest pain, unspecified (principal); E78.5 Hyperlipidemia, unspecified; R20.0 Anesthesia of skin; F17.210 Nicotine dependence, cigarettes, uncomplicated; Z86.73 Personal history of transient ischemic attack (TIA), and cerebral infarction without residual deficits
CPT/HCPCS: 93005; 99406; 99285; 96372; 36415; 82553; 82550; 85025; 80053; 84484; 71045; 93010; A9270; J1885

== ENCOUNTER → 2018-04-03 | Outpatient (CLI) | payer MEDICARE ==
--- NOTE | 2018-04-07 17:07 | WOMENS IMAGING REPORT ---
EXAM DESCRIPTION: BILAT SCREENING MAMMO W/CAD COMPLETED DATE/TIME: 04/07/2018 3:01 pm REASON FOR STUDY: BILATERAL SCREENING MAMMO /Z12.31 Z12.31 ENCNTR SCREEN MAMMOGRAM FOR MALIGNANT NE OPLASM OF ANTHONY COMPARISON: 03/21/2017. TECHNIQUE: Standard craniocaudal and mediolateral oblique views of each breast recorded using digita l acquisition. LIMITATIONS: None. FINDINGS: Findings present which are benign by mammographic criteria. No suspicious masses, calcifi cations or architectural distortion. Pertinent benign findings: Stable calcifications. Read with the assistance of CAD. .[facility] - R2 Cenova Version 1.3 .[facility] Imaging - R2 Cenova Version 1.3 .[facility] - R2 Cenova Version 2.4 .[facility] [place] R2 Cenova Version 2.4 .[facility] - R2 Beekeeper Version 9.2 Benign mammographic findings may include one or more of the following: Smooth masses, popcorn/rim/co arse calcifications, asymmetries, post-procedure changes, and lesions with long-standing stability. IMPRESSION: BENIGN MAMMOGRAPHIC FINDINGS. BIRADS 2 BREAST DENSITY: b. There are scattered areas of fibroglandular density. BIRAD: 2 BENIGN FINDING(S) RECOMMENDATION: ROUTINE SCREENING COMMENT: The patient has been notified of the results by letter per MQSA requirements. Additional no tification policies are in place for contacting patient with suspicious or incomplete findings. Quality ID #[id number]: The [employer] recommends an annual screening mammogram for women aged 40 years or over. This facility utilizes a reminder system to ensure that all patients receive reminder letters, and/or direct phone calls for appointments. This includes reminders for routine scr eening mammograms, diagnostic mammograms, or other Breast Imaging Interventions when appropriate. Th is patient will be placed in the appropriate reminder system. The [employer] (ACR) has developed recommendations for screening MRI of the breast s in certain patient populations, to be used in conjunction with mammography. Breast MRI surveillanc e may be appropriate for women with more than 20% lifetime risk of developing breast cancer as deter mined by genetic testing, significant family history of the disease, or history of mantle radiation f or Hodgkins Disease. ACR Practice Guidelines 2008. TECHNICAL DOCUMENTATION: FINDING NUMBER: (1) ASSESSMENT: (1) JOB ID: [id number] [employer]- All Rights Reserved Reading location - IP/workstation name: [email or web address]
== END ==
LOC: WI 10:10 → MERGE 10:10
PROVIDERS: ATTEND Internal Medicine
DX: Z12.31 Encounter for screening mammogram for malignant neoplasm of breast (principal)
CPT/HCPCS: 77067

== ENCOUNTER → 2018-07-31 | Outpatient (CLI) | payer MEDICARE ==
--- NOTE | 2018-07-31 16:46 | WOMENS IMAGING REPORT ---
EXAM DESCRIPTION: U/S BREAST UNILAT LIMITED COMPLETED DATE/TIME: 07/31/2018 11:31 am REASON FOR STUDY: D24.9 BENIGN NEOPLASM OF UNSPECIFIED BREAST LEFT; D24.9 BENIGN NEOPLASM OF UNSPECI FIED BREAST RIGHT D24.9 BENIGN NEOPLASM OF UNSPECIFIED BREAST COMPARISON: Mammograms 04/03/2018 Bilateral breast ultrasound 07/08/2017 TECHNIQUE: Real-time and static grayscale imaging performed of the right and left breast targeted to the area of clinical concern concern. Selected color Doppler images recorded. Patient refused mammography today LIMITATIONS: None. FINDINGS: Ultrasound of the right axilla and far upper outer quadrant breast was performed. No cyst ic or solid nodules. No worrisome acoustic absorption. No axillary adenopathy. Ultrasound of the left axilla and far upper outer quadrant breast was performed. No cystic or solid nodules. No worrisome acoustic absorption. No axillary adenopathy. IMPRESSION: No suspicious findings detected by ultrasound. BIRAD: 1 Negative. RECOMMENDATION: RECOMMENDED FOLLOW-UP: Follow-up as clinically indicated. COMMENT: The [employer] (ACR) has developed recommendations for screening MRI of the breasts in certain patient populations, to be used in conjunction with mammography. Breast MRI s urveillance may be appropriate for women with more than 20% lifetime risk of developing breast cancer as determined by genetic testing, significant family history of the disease, or history of mantle r adiation for Hodgkins Disease. ACR Practice Guidelines 2008. TECHNICAL DOCUMENTATION: JOB ID: [id number] [employer] All Rights Reserved Reading location - IP/workstation name: [email or web address]
== END ==
LOC: WI 10:40
PROVIDERS: ATTEND Internal Medicine
DX: D24.1 Benign neoplasm of right breast (principal)
CPT/HCPCS: 76642

== ENCOUNTER → 2018-10-03 | Outpatient (CLI) | payer MEDICARE ==
--- NOTE | 2018-10-03 11:31 | RADIOLOGY REPORT (SQ) ---
EXAM DESCRIPTION: HIPS BILATERAL COMPLETED DATE/TIME: 10/03/2018 11:21 am REASON FOR STUDY: PAIN IN UNSPECIFIED HIP M25.559 PAIN IN UNSPECIFIED HIP COMPARISON: None. NUMBER OF VIEWS: Two views TECHNIQUE: AP pelvis and additional frog-leg view of both hips. LIMITATIONS: None. FINDINGS: MINERALIZATION: Normal. HIPS: No acute fracture or dislocation. No worrisome bone lesions. PELVIS AND SACRUM: No acute fracture or dislocation. No worrisome bone lesions. PUBIS AND ISCHIUM: No acute fracture. LOWER LUMBAR SPINE: No significant findings as visualized. SOFT TISSUES: No findings. OTHER: No other significant finding. IMPRESSION: NEGATIVE STUDY OF THE PELVIS AND HIPS. TECHNICAL DOCUMENTATION: JOB ID: [id number] [employer]- All Rights Reserved Reading location - IP/workstation name: [email or web address]
== END ==
LOC: OD 11:08
PROVIDERS: ATTEND Internal Medicine
DX: M25.552 Pain in left hip (principal); M25.551 Pain in right hip
CPT/HCPCS: 73522

== ENCOUNTER → 2019-03-17 | Outpatient (CLI) | payer MEDICARE ==
[2019-03-17 12:09] LABS: ABSOLUTE LYMPHOCYTES (AUTO) 0.8 10^3/uL (0.5-4.7); ABSOLUTE MONOCYTES (AUTO) 0.6 10^3/uL (0.1-1.4); ABSOLUTE NEUT (AUTO) 6.5 10^3/uL (1.7-8.2); BASOPHILS % (AUTO) 0.5 % (0-2); HEMOGLOBIN 13.5 g/dL (12.0-15.5); LYMPHOCYTES % (AUTO) 9.7 % (13-45); MEAN CORPUSCULAR HEMOGLOBIN 31.2 pg (27.0-33.4); MEAN CORPUSCULAR HGB CONC 34.5 g/dL (32.0-36.0); MEAN CORPUSCULAR VOLUME 90 fl (80-97); PLATELET COUNT 238 10^3/uL (150-450); RED BLOOD COUNT 4.33 10^6/uL (3.72-5.28); RED CELL DISTRIBUTION WIDTH 13.5 % (11.5-14.0); SEGMENTED NEUTROPHILS % (AUTO) 81.8 % (42-78); TOTAL CELLS COUNTED % (AUTO) 100 %
[2019-03-17 12:30] LABS: ALBUMIN 3.7 g/dL (3.5-5.0); ALKALINE PHOSPHATASE 96 U/L (38-126); ANION GAP 11 (5-19); ASPARTATE AMINO TRANSFERASE 19 U/L (14-36); BILIRUBIN,DIRECT 0.1 mg/dL (0.0-0.4); BILIRUBIN,TOTAL 0.3 mg/dL (0.2-1.3); BLOOD UREA NITROGEN 17 mg/dL (7-20); CALCIUM 9.9 mg/dL (8.4-10.2); CARBON DIOXIDE 26 mmol/L (22-30); CHLORIDE 102 mmol/L (98-107); CHOLESTEROL 154.99 mg/dL (0-200); GLUCOSE 95 mg/dL (75-110); POTASSIUM 4.2 mmol/L (3.6-5.0); TOTAL PROTEIN 6.4 g/dL (6.3-8.2); TRIGLYCERIDES 307 mg/dL (<150)
[2019-03-17 12:41] LABS: DIRECT LDL 69 mg/dL (<100)
[2019-03-17 12:43] LABS: FREE T4 (FREE THYROXINE) 0.84 ng/dL (0.78-2.19)
[2019-03-17 12:46] LABS: VLDL CHOLESTEROL 61.4 mg/dL (10-31)
[2019-03-17 12:57] LABS: THYROID STIMULATING HORMONE 1.64 uIU/mL (0.47-4.68)
== END ==
LOC: LAB 11:39
PROVIDERS: ATTEND Internal Medicine
DX: E78.2 Mixed hyperlipidemia (principal); I10 Essential (primary) hypertension; E55.9 Vitamin D deficiency, unspecified; E66.01 Morbid (severe) obesity due to excess calories
CPT/HCPCS: 36415; 80053; 80061; 82306; 83036; 84439; 84443; 85025

== ENCOUNTER → 2019-04-06 | Outpatient (CLI) | payer MEDICARE ==
--- NOTE | 2019-04-06 12:51 | WOMENS IMAGING REPORT ---
EXAM DESCRIPTION: BILAT SCREENING MAMMO W/CAD COMPLETED DATE/TIME: 04/06/2019 11:27 am REASON FOR STUDY: Z12.31 ENCOUNTER FOR SCREENING MAMMOGRAM FOR MALIGNANT NEOPLASM OF BREAST Z12.31 ENCNTR SCREEN MAMMOGRAM FOR MALIGNANT NEOPLASM OF ANTHONY COMPARISON: 2017, 2017 EXAM PARAMETERS: Standard craniocaudal and mediolateral oblique views of each breast recorded using digital acquisition. Read with the assistance of CAD. .[facility] - [employer] Version 9.2 LIMITATIONS: None. FINDINGS: No suspicious masses, suspicious calcifications or architectural distortion. No areas of c oncern. IMPRESSION: Negative MAMMOGRAM. BIRADS 1 BREAST DENSITY: b. There are scattered areas of fibroglandular density. BIRAD: ASSESSMENT: 1 NEGATIVE RECOMMENDATION: ROUTINE SCREENING COMMENT: The patient has been notified of the results by letter per MQSA requirements. Additional no tification policies are in place for contacting patient with suspicious or incomplete findings. Quality ID #225: The [employer] recommends an annual screening mammogram for women aged 40 years or over. This facility utilizes a reminder system to ensure that all patients receive reminder letters, and/or direct phone calls for appointments. This includes reminders for routine scr eening mammograms, diagnostic mammograms, or other Breast Imaging Interventions when appropriate. Th is patient will be placed in the appropriate reminder system. TECHNICAL DOCUMENTATION: FINDING NUMBER: (1) ASSESSMENT: (1) JOB ID: [id number] [employer]- All Rights Reserved Reading location - IP/workstation name: [email or web address]
== END ==
LOC: WI 10:40
PROVIDERS: ATTEND Internal Medicine
DX: Z12.31 Encounter for screening mammogram for malignant neoplasm of breast (principal)
CPT/HCPCS: 77067

== ENCOUNTER 2019-05-10 22:19 | Emergency (ER) | payer MEDICARE ==
--- NOTE | 2019-05-10 23:34 | EKG REPORT ---
SEVERITY:- NORMAL ECG - SINUS RHYTHM : Confirmed by: Milo Marx 10-May-2019 23:33:48
[2019-05-10 23:42] LABS: ABSOLUTE NEUT (AUTO) 9.6 10^3/uL (1.7-8.2); BASOPHILS % (AUTO) 0.2 % (0-2); HEMATOCRIT 36.5 % (36.0-47.0); HEMOGLOBIN 12.6 g/dL (12.0-15.5); LYMPHOCYTES % (AUTO) 8.3 % (13-45); MEAN CORPUSCULAR HEMOGLOBIN 31.9 pg (27.0-33.4); MEAN CORPUSCULAR HGB CONC 34.6 g/dL (32.0-36.0); MEAN CORPUSCULAR VOLUME 92 fl (80-97); MONOCYTES % (AUTO) 8.8 % (3-13); PLATELET COUNT 199 10^3/uL (150-450); RED BLOOD COUNT 3.95 10^6/uL (3.72-5.28); RED CELL DISTRIBUTION WIDTH 14.3 % (11.5-14.0); SEGMENTED NEUTROPHILS % (AUTO) 82.7 % (42-78); TOTAL CELLS COUNTED % (AUTO) 100 %; WHITE BLOOD COUNT 11.6 10^3/uL (4.0-10.5)
[2019-05-11 00:01] LABS: ALBUMIN 3.5 g/dL (3.5-5.0); ALKALINE PHOSPHATASE 84 U/L (38-126); ANION GAP 10 (5-19); ASPARTATE AMINO TRANSFERASE 20 U/L (14-36); BILIRUBIN,DIRECT 0.1 mg/dL (0.0-0.4); BILIRUBIN,TOTAL 0.2 mg/dL (0.2-1.3); BLOOD UREA NITROGEN 14 mg/dL (7-20); CALCIUM 9.3 mg/dL (8.4-10.2); CARBON DIOXIDE 24 mmol/L (22-30); CHLORIDE 105 mmol/L (98-107); CREATINE KINASE 29 U/L (30-135); GLUCOSE 111 mg/dL (75-110); POTASSIUM 3.3 mmol/L (3.6-5.0); TOTAL PROTEIN 6.2 g/dL (6.3-8.2)
[2019-05-11 00:16] LABS: CREATINE KINASE MB < 0.22 ng/mL (<4.55); TROPONIN I < 0.012 ng/mL
--- NOTE | 2019-05-11 01:13 | RADIOLOGY REPORT (SQ) ---
EXAM DESCRIPTION: X-ray two view chest. CLINICAL HISTORY: 68 years Female, cough COMPARISON: 08/10/2017 TECHNIQUE: PA and Lateral views of the chest performed on 05/11/2019 at 12:41 AM FINDINGS: The frontal view of the chest is slightly overpenetrated. The lungs are well expanded and are grossly clear. There is minimal scarring in the posterior left lower lobe. The costophrenic sulci are clear. There is no definite pneumothorax. The cardiac silhouette is normal in size. There is a stable left subclavian transvenous bipolar pacemaker. The mediastinal contours are normal. No acute osseous abnormalities are identified. No focal soft tissue abnormalities are identified. IMPRESSION: 1. No evidence of acute intrathoracic disease. There is minimal scarring in the posterior left lower lobe. 2. Stable left subclavian transvenous bipolar pacemaker.
[2019-05-11 01:35] LABS: APPEARANCE,URINE SLIGHTLY-CLOUDY; BILIRUBIN,URINE NEGATIVE (NEGATIVE); COLOR,URINE YELLOW; GLUCOSE, URINE NEGATIVE (NEGATIVE); KETONES,URINE NEGATIVE (NEGATIVE); LEUKOCYTE ESTERASE,URINE TRACE (NEGATIVE); NITRITE,URINE NEGATIVE (NEGATIVE); PROTEIN,URINE NEGATIVE (NEGATIVE); UROBILINOGEN,URINE NEGATIVE mg/dL (<2.0)
[2019-05-11] MEDS: POTASSIUM CHLORIDE 10 MEQ TABLET.ER PO ONE ×2 (01:55→02:01)
[2019-05-11] MEDS ORDERED: POTASSIUM CHLORIDE 20 MEQ PACKET PO ONE (02:01)
--- NOTE | 2019-05-11 02:08 | ER Document Report ---
ED General - General Chief Complaint: Dizziness Stated Complaint: REPORTS LOW BLOOD PRESSURE,DIZZINESS Time Seen by Provider: 05/11/19 00:05 Primary Care Provider: CHRISTY COHEN MD [Primary Care Provider] - Follow up as needed TRAVEL OUTSIDE OF THE [place] IN LAST 30 DAYS: No - HPI Notes: Patient is a 68-year-old female who presents emergency department for evaluation of weakness. She states that she still felt very weak since [place]. She denies any pain. She states she feels dizzy, but denies any sensation that the world is spinning. No difficulty seeing, speaking, swallowing. She denies any tinnitus. She states she been taking her blood pressure at home. She cannot tell me what the measurements are, but they seem to low to her. She states that she has seen diastolic numbers in the 50s and 60s. She does not have her blood pressure cuff with her, nor does she have a log of what her numbers have been. She does not take any antihypertensives. She denies any fevers or chills. She has a chronic cough, states it does not really seem worse than normal. No urinary symptoms. No diarrhea. Normal appetite, normal p.o. intake. No cuts or rashes. - Related Data Allergies/Adverse Reactions: codeine Allergy (Verified 05/11/19 00:12) Home Medications: Diltiazem ERC 180mg QD. Atorvastatin 10mg QD. Furosemide 80mg BID. Spironolactone 50mg QD. Dexilant 60mg QD. Benzonate 200mg TID. Vitamin D2 50,000IU weekly. Aspirin 81mg QD. Fioricet TID prn. Fiber Laxative 625mg QD. Restasis 0.4 BID Past Medical History - General Information source: Patient, Relative - Social History Smoking Status: Current Every Day Smoker Frequency of alcohol use: None Drug Abuse: None Family History: COPD Patient has suicidal ideation: No Patient has homicidal ideation: No - Past Medical History Cardiac Medical History: Reports: Hx Hypercholesterolemia Neurological Medical History: Reports: Hx Cerebrovascular Accident - 2 years ago, Hx Seizures Renal/ Medical History: Denies: Hx Peritoneal Dialysis GI Medical History: Reports: Hx Gastroesophageal Reflux Disease Musculoskeletal Medical History: Reports Hx Arthritis Psychiatric Medical History: Denies: Hx Depression Past Surgical History: Reports: Hx Cardiac Surgery - pacemaker, Hx Cholecystectomy - Immunizations Hx Diphtheria, Pertussis, Tetanus Vaccination: No Physical Exam - Vital signs Vitals: Temp Pulse Resp BP Pulse Ox 98.0 F 81 14 110/54 L 95 05/10/19 22:27 05/10/19 22:27 05/10/19 22:27 05/10/19 22:27 05/10/19 22:27 - Notes Notes: This is a 68-year-old female that appears older than her stated age in no acute distress. She smells strongly of cigarette smoke. Vital signs reviewed, please refer to chart. Head is normocephalic, atraumatic. Pupils equal round, reactive to light. Neck is supple without meningismus. Heart is regular rate and rhythm. Lungs are clear to auscultation bilaterally. Abdomen is soft, nonten boogie, normoactive bowel sounds throughout. Extremities without cyanosis, clubbing. Posterior calves are nontender. Peripheral pulses are equal. Skin is warm and dry. Patient is awake, alert, oriented x3. Cranial nerves II - XII are grossly intact without focal neurological deficits. Strength is plus 5 out of 5 bilateral upper and lower extremities. Sensation is intact. Reflexes symmetrical. Intact pvjeam-vzje-mtmmha, rapid alternating movements, gfvp-yc-[id number]. Course - Re-evaluation Re-evalutation: 05/11/19 02:09 Patient presents emergency department for evaluation. Laboratory investigations were obtained. She is placed on a general medical practitioner. Her blood pressures remained in the 90s to 110 systolic. Her mean arterial pressures were normal. She had negative orthostatics. Her potassium is found to be slightly low and this was replaced. Her magnesium level was normal. As she reports this drop in blood pressure, I did go ahead and order blood cultures, which of course pending at this time. Patient is told to stay well-hydrated. Rest. Follow-up with primary care this week. She is amenable to this plan. She is to return to the ED with worsening or new concerning symptoms of any sort. - Vital Signs Vital signs: Temp Pulse Resp BP Pulse Ox 98.0 F 74 17 107/70 96 05/10/19 22:27 05/11/19 00:07 05/11/19 01:46 05/11/19 00:16 05/11/19 01:46 - Laboratory Result Diagrams: 05/10/19 23:22 05/10/19 23:22 Laboratory results interpreted by me: 05/10/19 05/10/19 05/11/19 23:22 23:22 01:20 WBC 11.6 H RDW 14.3 H Lymph % (Auto) 8.3 L Absolute Neuts (auto) 9.6 H Seg Neutrophils % 82.7 H Potassium 3.3 L Glucose 111 H Creatine Kinase 29 L Total Protein 6.2 L Ur Leukocyte Esterase TRACE H Discharge - Discharge Clinical Impression: Weakness, Dizziness, Hypokalemia Condition: Stable Disposition: HOME, SELF-CARE Instructions: Dizziness ([facility]), Weakness ([facility]), Hypokalemia ([facility]) Additional Instructions: Your potassium is found to be mildly low today, but this was replaced. Blood pressures were borderline, but not overly low. Please follow-up with your doctor this week. Bring your blood pressure cuff with you, so they can check the validity of your numbers, as well as check but the log has shown to be your blood pressure recently. If you develop worsening or new concerning symptoms of any sort, including but not limited to passing out, chest pain, difficulty breathing, worsening dizziness, please return immediately to the emergency department for evaluation. Referrals: CHRISTY COHEN MD [Primary Care Provider] - Follow up as needed
[2019-05-11 02:25] VITALS: BP 100/62
== END 2019-05-11 02:25 | disposition home or self-care (01) ==
LOC: ER 22:19
DX: E87.6 Hypokalemia (principal); R53.1 Weakness; R42 Dizziness and giddiness; R05 Cough; F17.200 Nicotine dependence, unspecified, uncomplicated; K21.9 Gastro-esophageal reflux disease without esophagitis; E78.00 Pure hypercholesterolemia, unspecified; Z79.899 Other long term (current) drug therapy; Z79.82 Long term (current) use of aspirin; Z88.5 Allergy status to narcotic agent; Z88.6 Allergy status to analgesic agent; Z95.0 Presence of cardiac pacemaker
CPT/HCPCS: 93005; 99284; 36415; 87040; 82553; 82550; 83735; 85025; 80053; 81001; 84484; 71046; 93010; J3490

== ENCOUNTER → 2019-12-28 | Outpatient (CLI) | payer MEDICARE ==
--- NOTE | 2019-12-28 15:05 | RADIOLOGY REPORT (SQ) ---
EXAM DESCRIPTION: CT LUMBAR SPINE WITHOUT IMAGES COMPLETED DATE/TIME: 12/28/2019 2:30 pm REASON FOR STUDY: M54.16 RADICULOPATHY, LUMBAR REGION M54.16 RADICULOPATHY, LUMBAR REGION COMPARISON: None. TECHNIQUE: Axial images acquired through the lumbar spine without intravenous contrast. Images revi ewed with lung, soft tissue and bone windows. Reconstructed coronal and sagittal MPR images reviewe d. All images stored on PACS. All CT scanners at this facility use dose modulation, iterative reconstruction, and/or weight based d osing when appropriate to reduce radiation dose to as low as reasonably achievable (ALARA). [facility]: Dose Right [facility]: CareDose [facility]: Dose Right [facility]: Teradose 4D [facility]: Smart Technologies RADIATION DOSE: CT Rad equipment meets quality standard of care and radiation dose reduction techniq ues were employed. CTDIvol: 16.7 mGy. DLP: 487 mGy-cm. mGy. LIMITATIONS: None. FINDINGS: SEGMENTATION: Normal. No transitional anatomy. ALIGNMENT: Grade 1 anterolisthesis of L4 on L5. Grade 1 anterolisthesis of L3 on L4. Slight retroli sthesis of L1 on L2. VERTEBRAL BODIES: There are wedge deformities at T12 and L1. Ages are indeterminate. DISCS: Study limited by lack of intrathecal contrast. L1-L2: Broad-based disc/ osteophyte complex. No central stenosis. Mild left foraminal narrowing sec ondary to asymmetric facet arthropathy. L2-L3: Disc space narrowing along with vacuum phenomena. Bilateral facet arthropathy. No high-grade central stenosis. No definite foraminal narrowing. L3-L4: Disc space narrowing with bilateral facet arthropathy. There is annular disc bulging. Prior posterior decompression. No high-grade central stenosis. No significant foraminal narrowing. L4-L5: Grade 1 anterolisthesis of L4 on L5. Prior posterior decompression. There is broad-based anjel ular bulging. No central stenosis or definite nerve root impingement. L5-S1: Vacuum phenomena with disc space narrowing. No high-grade central stenosis. There is asymmet demi narrowing of the right neural foramina due to asymmetric facet arthropathy. PEDICLES, TRANSVERSE PROCESSES: No fractures. No dislocation. No acute findings. FACETS, POSTERIOR ELEMENTS: No fractures. No dislocation. No spinal stenosis. HARDWARE: None in the spine. VISUALIZED RIBS: No fractures. SOFT TISSUES: No significant or acute finding in adjacent soft tissues. OTHER: No other significant finding. IMPRESSION: 1. Multilevel disc degenerative disease. 2. Asymmetric narrowing of the right neural foramina at L5-S1 due to asymmetric facet arthropathy. 3. Mild wedge deformities at T12 and L1. Age is indeterminate. 4. Postsurgical changes at L3-L4 and L4-L5 as described. TECHNICAL DOCUMENTATION: JOB ID: [id number] Quality ID # [id number]: Final reports with documentation of one or more dose reduction techniques (e.g., Au tomated exposure control, adjustment of the mA and/or kV according to patient size, use of iterative reconstruction technique) 2010 [employer]- All Rights Reserved Reading location - IP/workstation name: [email or web address]
== END ==
LOC: RAD 13:55
PROVIDERS: ATTEND Anesthesiology Pain Medicine
DX: M51.16 Intervertebral disc disorders with radiculopathy, lumbar region (principal)
CPT/HCPCS: 72131

== ENCOUNTER 2020-03-29 13:46 | Emergency (ER) | payer MEDICARE ==
--- NOTE | 2020-03-29 14:30 | ER Document Report ---
ED Medical Screen (RME) - General Chief Complaint: Low Blood Pressure Stated Complaint: DIZZINESS/LOW BLOOD PRESSURE Time Seen by Provider: 03/29/20 14:21 Primary Care Provider: CHRISTY COHEN MD [Primary Care Provider] - Follow up as needed TRAVEL OUTSIDE OF THE [place] IN LAST 30 DAYS: No - HPI Notes: 03/29/20 14:28 69-year-old female with a history of hyperlipidemia, migraines, pacemaker and right-sided CVA presents to the emergency room via EMS today for complaints of dizziness, blurred vision and headaches. She was given 500 mL IV via EMS. Patient states her blood pressure has been running a little bit low, when she took it this morning it was 85/45, she took it a couple more times and she called EMS. Patient denies being on any blood pressure medications. Patient does take furosemide for her pedal edema, denies any history of CHF. Patient denies any new medications, new foods. Patient denies being on any new vitamins. I have greeted and performed a rapid initial assessment of this patient. A comprehensive ED assessment and evaluation of the patient, analysis of test results and completion of the medical decision making process will be conducted by additional ED providers. PHYSICAL EXAMINATION: GENERAL: Well-appearing, well-nourished and in no acute distress. CV: s1, s2 regular LUNGS: No respiratory distress Musculoskeletal: Normal range of motion NEUROLOGICAL: Normal speech 03/29/20 14:29 - Related Data Allergies/Adverse Reactions: codeine Allergy (Verified 03/29/20 14:20) Home Medications: PACEMAKER. CVA. LASIX. MIGRAINES Past Medical History - Social History Chew tobacco use (# tins/day): No Frequency of alcohol use: None Drug Abuse: None - Past Medical History Cardiac Medical History: Reports: Hx Hypercholesterolemia Neurological Medical History: Reports: Hx Cerebrovascular Accident - 2 years ago, Hx Seizures Renal/ Medical History: Denies: Hx Peritoneal Dialysis GI Medical History: Reports: Hx Gastroesophageal Reflux Disease Musculoskeltal Medical History: Reports Hx Arthritis Psychiatric Medical History: Denies: Hx Depression Past Surgical History: Reports: Hx Cardiac Surgery - pacemaker, Hx Cholecystectomy - Immunizations Hx Diphtheria, Pertussis, Tetanus Vaccination: No Physical Exam - Vital signs Vitals: Temp Pulse Resp BP Pulse Ox 98.0 F 76 16 97/52 L 92 03/29/20 13:55 03/29/20 13:55 03/29/20 13:55 03/29/20 13:55 03/29/20 13:55 Course - Vital Signs Vital signs: Temp Pulse Resp BP Pulse Ox 98.0 F 76 16 97/52 L 92 03/29/20 14:20 03/29/20 13:55 03/29/20 13:55 03/29/20 13:55 03/29/20 13:55 Doctor's Discharge - Discharge Referrals: CHRISTY COHEN MD [Primary Care Provider] - Follow up as needed
--- NOTE | 2020-03-29 14:45 | RADIOLOGY REPORT (SQ) ---
EXAM DESCRIPTION: CHEST 2 VIEWS IMAGES COMPLETED DATE/TIME: 03/29/2020 2:37 pm REASON FOR STUDY: dizziness, AREVALO, hypotensive COMPARISON: 05/11/2019. EXAM PARAMETERS: NUMBER OF VIEWS: two views TECHNIQUE: Digital Frontal and Lateral radiographic views of the chest acquired. RADIATION DOSE: NA LIMITATIONS: none FINDINGS: LUNGS AND PLEURA: Mild scarring in the lung bases. No focal infiltrates, masses or pneumo thorax. No pleural effusion. MEDIASTINUM AND HILAR STRUCTURES: No masses or contour abnormalities. HEART AND VASCULAR STRUCTURES: Heart normal size. No evidence for failure. BONES: No acute findings. HARDWARE: Pacemaker. OTHER: No other significant finding. IMPRESSION: NO ACUTE RADIOGRAPHIC FINDING IN THE CHEST. TECHNICAL DOCUMENTATION: JOB ID: [id number] 2010 [employer]- All Rights Reserved Reading location - IP/workstation name: [email or web address]
[2020-03-29 15:15] LABS: APPEARANCE,URINE CLEAR; BILIRUBIN,URINE NEGATIVE (NEGATIVE); COLOR,URINE STRAW; GLUCOSE, URINE NEGATIVE (NEGATIVE); KETONES,URINE NEGATIVE (NEGATIVE); LEUKOCYTE ESTERASE,URINE NEGATIVE (NEGATIVE); NITRITE,URINE NEGATIVE (NEGATIVE); PROTEIN,URINE NEGATIVE (NEGATIVE); URINE SPECIFIC GRAVITY 1.008; UROBILINOGEN,URINE NEGATIVE mg/dL (<2.0)
[2020-03-29 15:16] LABS: ABSOLUTE BASOPHILS # (AUTO) 0.1 10^3/uL (0.0-0.2); ABSOLUTE LYMPHOCYTES (AUTO) 0.9 10^3/uL (0.5-4.7); ABSOLUTE MONOCYTES (AUTO) 1.2 10^3/uL (0.1-1.4); ABSOLUTE NEUT (AUTO) 10.3 10^3/uL (1.7-8.2); BASOPHILS % (AUTO) 0.7 % (0-2); EOSINOPHILS % (AUTO) 0.1 % (0-6); HEMATOCRIT 38.3 % (36.0-47.0); HEMOGLOBIN 13.1 g/dL (12.0-15.5); LYMPHOCYTES % (AUTO) 7.2 % (13-45); MEAN CORPUSCULAR HEMOGLOBIN 31.9 pg (27.0-33.4); MEAN CORPUSCULAR HGB CONC 34.3 g/dL (32.0-36.0); MEAN CORPUSCULAR VOLUME 93 fl (80-97); MONOCYTES % (AUTO) 9.3 % (3-13); PLATELET COUNT 229 10^3/uL (150-450); RED BLOOD COUNT 4.12 10^6/uL (3.72-5.28); RED CELL DISTRIBUTION WIDTH 13.9 % (11.5-14.0); SEGMENTED NEUTROPHILS % (AUTO) 82.7 % (42-78); TOTAL CELLS COUNTED % (AUTO) 100 %; WHITE BLOOD COUNT 12.4 10^3/uL (4.0-10.5)
[2020-03-29 15:27] LABS: ALBUMIN 3.7 g/dL (3.5-5.0); ALKALINE PHOSPHATASE 111 U/L (38-126); ANION GAP 9 (5-19); ASPARTATE AMINO TRANSFERASE 17 U/L (14-36); BILIRUBIN,DIRECT 0.3 mg/dL (0.0-0.4); BILIRUBIN,TOTAL 0.3 mg/dL (0.2-1.3); BLOOD UREA NITROGEN 18 mg/dL (7-20); CALCIUM 9.2 mg/dL (8.4-10.2); CARBON DIOXIDE 28 mmol/L (22-30); CHLORIDE 102 mmol/L (98-107); GLUCOSE 93 mg/dL (75-110); POTASSIUM 3.6 mmol/L (3.6-5.0); TOTAL PROTEIN 6.3 g/dL (6.3-8.2)
--- NOTE | 2020-03-29 17:19 | ER Document Report ---
ED Blood Pressure Problem - General Chief Complaint: Low Blood Pressure Stated Complaint: DIZZINESS/LOW BLOOD PRESSURE Time Seen by Provider: 03/29/20 14:21 Primary Care Provider: CHRISTY COHEN MD [Primary Care Provider] - Follow up as needed Mode of Arrival: Medic Information source: Patient TRAVEL OUTSIDE OF THE [place] IN LAST 30 DAYS: No - HPI Notes: Patient arrives complaining that she has been feeling weak and that her blood pressure has been running low at home. She also states she has had some blurry vision. She states she received some IV fluids by ambulance and she now feels better. She denies any vomiting or diarrhea. She does take 2 diuretics per day for fluid retention. She denies any type of other hypertensive medications. No recent cough cold or congestion. No chest pain or shortness of breath. W eakness has been constant today. Is worse with exertion better with rest. It does radiate throughout her body. It is moderate to severe in intensity. - Related Data Allergies/Adverse Reactions: codeine Allergy (Verified 03/29/20 14:20) Home Medications: PACEMAKER. CVA. LASIX. MIGRAINES Past Medical History - General Information source: Patient - Social History Smoking Status: Current Every Day Smoker Chew tobacco use (# tins/day): No Frequency of alcohol use: None Drug Abuse: None Family History: COPD Patient has homicidal ideation: No - Past Medical History Cardiac Medical History: Reports: Hx Hypercholesterolemia Neurological Medical History: Reports: Hx Cerebrovascular Accident - 2 years ago, Hx Seizures Renal/ Medical History: Denies: Hx Peritoneal Dialysis GI Medical History: Reports: Hx Gastroesophageal Reflux Disease Musculoskeletal Medical History: Reports Hx Arthritis Psychiatric Medical History: Denies: Hx Depression Past Surgical History: Reports: Hx Cardiac Surgery - pacemaker, Hx Cholecystectomy - Immunizations Hx Diphtheria, Pertussis, Tetanus Vaccination: No Review of Systems - Review of Systems Constitutional: denies: Chills, Fever Cardiovascular: denies: Chest pain, Palpitations Gastrointestinal: denies: Diarrhea, Vomiting -: Yes All other systems reviewed and negative Physical Exam - Vital signs Vitals: Temp Pulse Resp BP Pulse Ox 98.0 F 76 16 97/52 L 92 03/29/20 13:55 03/29/20 13:55 03/29/20 13:55 03/29/20 13:55 03/29/20 13:55 Interpretation: Normal - General General appearance: Appears well, Alert - HEENT Head: Normocephalic, Atraumatic Eyes: Normal Pupils: PERRL - Respiratory Respiratory status: No respiratory distress Chest status: Nontender Breath sounds: Normal Chest palpation: Normal - Cardiovascular Rhythm: Regular Heart sounds: Normal auscultation Murmur: No - Abdominal Inspection: Normal Distension: No distension Bowel sounds: Normal Tenderness: Nontender Organomegaly: No organomegaly - Back Back: Normal, Nontender - Extremities General upper extremity: Normal inspection, Nontender, Normal color, Normal ROM, Normal temperature General lower extremity: Normal inspection, Nontender, Normal color, Normal ROM, Normal temperature, Normal weight bearing. No: Geovanna's sign - Neurological Neuro grossly intact: Yes Cognition: Normal Orientation: AAOx4 [place] Coma Scale Eye Opening: Spontaneous [place] Coma Scale Verbal: Oriented [place] Coma Scale Motor: Obeys Commands [place] Coma Scale Total: 15 Speech: Normal Motor strength normal: LUE, RUE, LLE, RLE Sensory: Normal - Psychological Associated symptoms: Normal affect, Normal mood - Skin Skin Temperature: Warm Skin Moisture: Dry Skin Color: Normal Course - Re-evaluation Re-evalutation: 03/29/20 17:18 Patient arrives complaining of low blood pressure and feeling weak. However patient's vital signs are not significantly remarkable including orthostatics. Supine her blood pressures approximately 100 systolic but she had similar to better blood pressures sitting and standing. I am going to recommend that the patient take her Lasix every other day until she can speak with her primary care physician. There is not significant evidence of dehydration. No evidence of infectious process. No evidence of cardiogenic process. - Vital Signs Vital signs: Temp Pulse Resp BP Pulse Ox 98.0 F 64 17 93/57 L 97 03/29/20 14:20 03/29/20 17:03 03/29/20 15:03 03/29/20 17:03 03/29/20 15:03 - Laboratory Result Diagrams: 03/29/20 14:48 03/29/20 14:48 Laboratory results interpreted by me: 03/29/20 14:48 WBC 12.4 H Lymph % (Auto) 7.2 L Absolute Neuts (auto) 10.3 H Seg Neutrophils % 82.7 H - Diagnostic Test Radiology reviewed: Image reviewed, Reports reviewed - EKG Interpretation by Me EKG shows normal: Sinus rhythm Rate: Normal - 64 Rhythm: NSR [place]/QRS: No: Right axis deviation, Left axis deviation When compared to previous EKG there are: No significant change Discharge - Discharge Clinical Impression: Weakness Condition: Stable Disposition: HOME, SELF-CARE Instructions: Weakness (OM) Forms: Return to Work Referrals: CHRISTY COHEN MD [Primary Care Provider] - Follow up tomorrow
--- NOTE | 2020-03-29 18:14 | RADIOLOGY REPORT (SQ) ---
EXAM DESCRIPTION: CTA CHEST IMAGES COMPLETED DATE/TIME: 03/29/2020 5:51 pm REASON FOR STUDY: weak/dyspnea COMPARISON: Same day radiograph TECHNIQUE: CT scan of the chest performed using helical scanning technique with dynamic intravenous contrast injection. Images reviewed with lung, soft tissue and bone windows. Reconstructed coronal and sagittal MPR images reviewed. Additional 3 dimensional post-processing performed to develop Maximal Intensity Projection images (OR P). All images stored on PACS. All CT scanners at this facility use dose modulation, iterative reconstruction, and/or weight based d osing when appropriate to reduce radiation dose to as low as reasonably achievable (ALARA). [facility]: Dose Right [facility]: CareDose [facility]: Dose Right [facility]: Teradose 4D [facility]: On The Flea CONTRAST TYPE AND DOSE: contrast/concentration: Isovue 350.00 mmol/ml; Total Contrast Delivered: 59. 0 ml; Total Saline Delivered: 37.4 ml Contrast bolus adequate for pulmonary arteries and aorta. RENAL FUNCTION: Creatinine 0.79 RADIATION DOSE: CT Rad equipment meets quality standard of care and radiation dose reduction techniq ues were employed. CTDIvol: 17.0 - 19.8 mGy. DLP: 598 mGy-cm. . LIMITATIONS: None. FINDINGS: LUNGS AND PLEURA: Minimal dependent hypoventilatory change. Right middle lobe linear cons olidation, likely atelectasis. Scattered subpleural cysts and upper lobe centrilobular emphysema. N o definitive airspace disease. No pleural effusion or pneumothorax. No discrete pulmonary nodules o r masses. AORTA AND GREAT VESSELS: No aneurysm. No dissection. HEART: Normal heart size. No pericardial effusion. Scattered coronary atherosclerosis. Left-sided cardiac pacer with leads in the right atrium and right ventricle. No significant coronary artery calc ifications. PULMONARY ARTERIES: No emboli visualized in the main pulmonary arteries or the segmental branches. HILAR AND MEDIASTINAL STRUCTURES: No identified masses or abnormal nodes. HARDWARE: As above. UPPER ABDOMEN: No acute findings. Cholecystectomy clips. THYROID AND OTHER SOFT TISSUES: No masses. No adenopathy. BONES: No acute or significant finding. 3D MIPS: Confirm above findings. OTHER: No other significant finding. IMPRESSION: 1. No evidence of pulmonary embolus or other acute intrathoracic process. 2. Scattered coronary atherosclerosis. COMMENT: Quality ID # [id number]: Final reports with documentation of one or more dose reduction techniques (e.g., Automated exposure control, adjustment of the mA and/or kV according to patient size, use of iterative reconstruction technique) TECHNICAL DOCUMENTATION: JOB ID: [id number] 2010 [employer]- All Rights Reserved Reading location - IP/workstation name: [email or web address]
[2020-03-29 19:04] VITALS: BP 110/64
--- NOTE | 2020-03-29 21:23 | EKG REPORT ---
SEVERITY:- OTHERWISE NORMAL ECG - SINUS RHYTHM VENTRICULAR PREMATURE COMPLEX : Confirmed by: Quincy Rojas MD 29-Mar-2020 21:23:07
== END 2020-03-29 19:04 | disposition home or self-care (01) ==
LOC: ER 13:46
DX: R53.1 Weakness (principal); I95.9 Hypotension, unspecified; R42 Dizziness and giddiness; Z88.8 Allergy status to other drugs, medicaments and biological substances; Z79.899 Other long term (current) drug therapy; Z95.0 Presence of cardiac pacemaker
CPT/HCPCS: 36415; 71046; 71275; 80053; 81001; 83735; 84484; 85025; 93005; 93010; 99285

== ENCOUNTER → 2020-04-13 | Outpatient (CLI) | payer MEDICARE | LOC: OD 15:20 | PROVIDERS: ATTEND Plastic Surgery | DX: D23.5 Other benign neoplasm of skin of trunk (principal) | CPT/HCPCS: 88305 ==

== ENCOUNTER → 2020-04-15 | Outpatient (CLI) | payer MEDICARE ==
--- NOTE | 2020-04-15 16:46 | WOMENS IMAGING REPORT ---
EXAM DESCRIPTION: BILAT SCREENING MAMMO W/CAD IMAGES COMPLETED DATE/TIME: 04/15/2020 11:25 am REASON FOR STUDY: Z12.31 ENCOUNTER FOR SCREENING MAMMOGRAM FOR MALIGNANT NEOPLASM OF BREAST Z12.31 ENCNTR SCREEN MAMMOGRAM FOR MALIGNANT NEOPLASM OF ANTHONY COMPARISON: 2017 - 2018 EXAM PARAMETERS: Standard craniocaudal and mediolateral oblique views of each breast recorded using digital acquisition. Read with the assistance of CAD. .[facility] - [employer] Interchange Agent Version 9.2 LIMITATIONS: None. FINDINGS: Findings present which are benign by mammographic criteria. No suspicious masses, calcifi cations or architectural distortion. Pertinent benign findings: Scattered benign stable calcifications. Benign mammographic findings may include one or more of the following: Smooth masses, popcorn/rim/co arse calcifications, asymmetries, post-procedure changes, and lesions with long-standing stability. IMPRESSION: BENIGN MAMMOGRAPHIC FINDINGS. BIRADS 2 BREAST DENSITY: b. There are scattered areas of fibroglandular density. BIRAD: ASSESSMENT: 2 BENIGN FINDING(S) RECOMMENDATION: ROUTINE SCREENING COMMENT: The patient has been notified of the results by letter per [place] requirements. Additional no tification policies are in place for contacting patient with suspicious or incomplete findings. Quality ID #[id number]: The [employer] recommends an annual screening mammogram for women aged 40 years or over. This facility utilizes a reminder system to ensure that all patients receive reminder letters, and/or direct phone calls for appointments. This includes reminders for routine scr eening mammograms, diagnostic mammograms, or other Breast Imaging Interventions when appropriate. Th is patient will be placed in the appropriate reminder system. TECHNICAL DOCUMENTATION: FINDING NUMBER: (1) ASSESSMENT: (1) JOB ID: [id number] 2010 [employer]- All Rights Reserved Reading location - IP/workstation name: [email or web address]
== END ==
LOC: WI 11:07
PROVIDERS: ATTEND Internal Medicine
DX: Z12.31 Encounter for screening mammogram for malignant neoplasm of breast (principal); R92.1 Mammographic calcification found on diagnostic imaging of breast
CPT/HCPCS: 77067